=== PATIENT | male | born 1960 | race African-American/Black ===

== ENCOUNTER 2017-03-18 00:49 | Inpatient (IN) ==
[2017-03-18] MEDS ORDERED: HYDROmorphone 2 MG/1 ML VIAL IV STA (01:15)
[2017-03-18] MEDS ORDERED: METOCLOPRAMIDE 10 MG/2 ML VIAL IV STA (01:15)
[2017-03-18] MEDS ORDERED: NITROGLYCERIN 2% OINT 1 INCH/GM PACK TOP STA (01:15)
[2017-03-18] MEDS ORDERED: ONDANSETRON 4 MG/2 ML VIAL IV STA ×2 (01:15→02:55)
[2017-03-18] MEDS ORDERED: ASPIRIN 325 MG TABLET PO STA (01:15)
--- NOTE | 2017-03-18 01:22 | Emergency Department Note ---
Arrival - Arrival ED Nursing Triage Note: pt to room via ems. pt c/o cp since 1700 yesterday. pt states 2200 last night his icd fired. pt connedted to monitor ekg obtained. Mode of Arrival: Stretcher Limitations: No Limitations Source: Patient - History of Present Illness Onset (ago): hour(s) (Patient presents 3 hours post onset of symptom) <Matthew Islas - Last Filed: 03/18/17 01:18> <Ron Carias - Last Filed: 03/18/17 03:03> - Arrival Chief Complaint: Chest Pain Stated Complaint: chest pain Time Seen by Provider: 03/18/17 01:15 - History of Present Illness HPI Narrative: This 57-year-old black male with an extensive cardiac history including CA, multiple cardiac catheterizations, CABG, and implanted defibrillator presents after his defibrillator fired about 3 hours ago. Since that time he has had low -grade nausea without vomiting, a sense of breathlessness, and persistence of left sided chest pain. He states in the period preceding the firing of the defibrillator he was extremely nauseous and diaphoretic. He denies any other significant symptoms at this time and appears medically stable although uncomfortable. (Matthew Islas) Allergies/Adverse Reactions: Allergies Allergy/AdvReac Type Severity Reaction Status Date / Time No Known Allergies Allergy Verified 03/18/17 01:07 Home Medications: Home Medications Medication Instructions Recorded Confirmed Type Atorvastatin [Lipitor] 40 mg PO DAILY 03/18/17 03/18/17 History Carvedilol [Carvedilol] 3.125 mg PO DAILY 03/18/17 03/18/17 History Furosemide [Furosemide] 20 mg PO DAILY 03/18/17 03/18/17 History Lisinopril [Lisinopril] 2.5 mg PO DAILY 03/18/17 03/18/17 History Spironolactone 25 mg PO DAILY 03/18/17 03/18/17 History Tamsulosin [Flomax] 0.4 mg PO DAILY 03/18/17 03/18/17 History Review of System - Review of System Constitutional: Present: as per HPI Respiratory: Present: as per HPI Cardiovascular: Present: as per HPI Gastrointestinal: Present: as per HPI <Matthew Islas - Last Filed: 03/18/17 01:18> Medical,Surgical,& Family Hx - Medical History Cardio: History of: CHF, Hypertension, CA, Pacemaker Endocrine: History of: Dyslipidemia - Surgical History Cardiac Surgeries: Sugical HX of: Cardiac Catheterization Abdominal Surgeries: Surgical HX of: Cholecystectomy - Social History Smoking Status: Former smoker Frequency of Alcohol Use: Rarely Type of Drug Use: None <Matthew Islas - Last Filed: 03/18/17 01:18> Exam <Matthew Islas - Last Filed: 03/18/17 01:18> <Ron Carias - Last Filed: 03/18/17 03:03> Physical Examination: GENERAL: Well developed, well nourished black male in no acute distress. HEENT: Normocephalic. No trauma. Moist mucous membranes. EOMI. PERRLA. ENT NML NECK: Supple. No adenopathy. CARDIAC: Regular. No murmurs. Heart rate 82 O2 sat 97% CHEST: Clear to auscultation. No respiratory distress. Tender chest wall to palpation around the defibrillator ABDOMEN: Soft. Nontender. Active bowel sounds. EXTREMITIES: No trauma. Normal ROM. No pedal edema. SKIN: No diaphoresis. No rash. NEURO: Alert. Anxious and oriented 3 with motor, sensory, vibratory intact. No focal deficits. (Matthew Islas) Vital Signs: Vital Signs Temperature 96.2 F L 03/18/17 00:50 Pulse Rate 96 H 03/18/17 00:50 Respiratory Rate 17 03/18/17 01:14 Blood Pressure 115/77 03/18/17 00:50 O2 Sat by Pulse Oximetry 97 03/18/17 00:50 Course <Matthew Islas - Last Filed: 03/18/17 01:18> <Ron Carias - Last Filed: 03/18/17 03:03> Course Narrative: Patient with chest pain since yesterday that is worsened after having his ICD fire. He has a [employer] device. [employer] contacted for device interrogation and they plan to interrogate the device in the morning. Troponin negative. Discussed with Dr. Hanson and plan to admit to his service on telemetry for ICD interrogation in the morning and further management. (Ron Carias) Results <Matthew Islas - Last Filed: 03/18/17 01:18> - Labs CBC & BMP: 03/18/17 01:02 03/18/17 01:02 Lab Results: I have reviewed the patients labs <Ron Carias - Last Filed: 03/18/17 03:03> - Impressions EKG sinus rhythm at 82 with normal SD interval and intraventricular conduction delay. Left ventricular hypertrophy with nonspecific ST changes noted no acute injury pattern noted. (Matthew Islas) Disposition <Matthew Islas - Last Filed: 03/18/17 01:18> Case discussed with: patient <Ron Carias - Last Filed: 03/18/17 03:03> Clinical Impression: Chest pain, ICD (implantable cardioverter-defibrillator) discharge Disposition: Still a Patient Condition: Stable
[2017-03-18] MEDS ORDERED: METOCLOPRAMIDE 10 MG/2 ML VIAL ONE (01:24)
[2017-03-18] MEDS ORDERED: NITROGLYCERIN 2% OINT 1 INCH/GM PACK TOP ONE (01:24)
[2017-03-18] MEDS ORDERED: ONDANSETRON 4 MG/2 ML VIAL ONE ×2 (01:24→02:59)
[2017-03-18 01:25] LABS: Basophils # 0.1 10*3/uL (0.0-0.2); Eosinophils # 0.1 10*3/uL (0.0-0.87); Eosinophils % 1.3 % (0.00-10.9); Hematocrit 41.1 VOL% (42.0-52.0); Hemoglobin 13.9 GM/DL (14.0-18.0); Immature Granulocytes % 0.2 %; Immature Granulocytes Absolute 0.02 #; Lymphocytes # 1.8 10*3/uL (1.4-4.0); Lymphocytes % 21.6 % (21.2-54.2); Mean Corpuscular HGB Conc 33.8 GM/DL (32-36); Mean Corpuscular Hemoglobin 30 PG (27-34); Mean Corpuscular Volume 87.4 FL (87-102); Mean Platelet Volume 9.5 FL (9.6-12.0); Monocytes # 0.5 10*3/uL (0.11-0.8); Monocytes % 6.3 % (1.7-12.7); Neutrophils # 5.8 10*3/uL (1.4-7.4); Neutrophils % 69.6 % (38.7-73.9); Platelet Count 279 T/CUMM (130-400); White Blood Count 8.4 T/CUMM (4-12)
[2017-03-18] MEDS ORDERED: ASPIRIN 325 MG TABLET ONE (01:25)
[2017-03-18] MEDS ORDERED: HYDROmorphone 2 MG/1 ML VIAL ONE (01:25)
[2017-03-18 01:32] LABS: PT Patient Result 10.7 SECS; Partial Thromboplastin Time 28.8 SECS (0-40)
[2017-03-18 01:40] LABS: Albumin 3.2 G/DL (3.4-5.0); Bilirubin,Total 0.4 MG/DL (0.2-1.0); Calcium 8.7 MG/DL (8.5-10.1); Osmolality,Calculated 275.4 MOS/KG (273-304); Potassium 4.1 MMOL/L (3.5-5.1); Total Protein 6.9 G/DL (6.4-8.3)
[2017-03-18 01:41] LABS: Troponin I Only < 0.015 NG/ML (0.00-0.045)
[2017-03-18 02:34] LABS: Apearance,Urine CLEAR (Clear); Bilirubin,Urine Negative (Negative); Blood, Urine Moderate mg/dL (Negative); Glucose,Urine (UA) Negative (Negative); Ketones,Urine 5 mg/dL (Negative); Mucus,Urine Occasional /LPF (Occasional); Nitrite,Urine Negative (Negative); Protein,Urine Negative; RBC,Urine 5 /HPF (0-4); Urine Color Yellow (Yellow); Urine Specific Gravity 1.015 (1.001-1.035); WBC,Urine 1 /HPF (0-6)
[2017-03-18] MEDS ORDERED: MAGNESIUM SULF RIDER 2 GM in PREMIX 1 EACH IV PRN (02:56)
[2017-03-18] MEDS ORDERED: MORPHINE 2 MG/1 ML SYRINGE IV STA (02:56)
[2017-03-18] MEDS ORDERED: MAGNESIUM SULF RIDER 4 GM in PREMIX 1 EACH IV PRN (02:56)
[2017-03-18] MEDS ORDERED: ONDANSETRON 4 MG/2 ML VIAL IV PRN (02:56)
[2017-03-18] MEDS ORDERED: MORPHINE 2 MG/1 ML SYRINGE ONE (03:00)
[2017-03-18 03:10] LABS: Barbiturates Screen,Urine Negative (Negative); Benzodiazepines Screen,Urine Negative (Negative); Cannabinoid Screen,Urine Negative (Negative); Opiate Screen,Urine Positive (Negative); Phencyclidine Screen,Urine Negative (Negative)
[2017-03-18] MEDS: MORPHINE 2 MG/1 ML SYRINGE IV PRN (05:15)
[2017-03-18] MEDS: DEXTROSE 5% NACL 0.45% 1,000 ML IV SCH ×3 (05:17→21:20)
--- NOTE | 2017-03-18 06:14 | XRay Report ---
XR chest 2V Indication: Chest pain. Comparison: Chest x-ray 10/21/2016 Technique: PA and lateral chest x-ray was performed. Findings: The heart is mildly enlarged. Prior sternotomy is demonstrated. AICD is stable. Lungs demonstrate screening airspace opacities bilaterally within the cardiophrenic angle suggesting atelectatic change. Lungs otherwise clear for degree of inspiration. Chest is otherwise stable. Surgical absence of the gallbladder is demonstrated. Impression: 1. Minimal bibasilar atelectatic changes are suggested. Otherwise no adverse interval change in chest or evidence of acute pathology. 03/18/2017 6:10 AM PROCEDURE INTERPRETED AT [facility] DEPARTMENT OF RADIOLOGY Final Report Signed by: Dr. Johnnie Layne
--- NOTE | 2017-03-18 06:24 | EKG Report ---
Stationary ECG Study [facility] ER Test Date: 03/18/2017 12:54:21 AM Pat Name: DONITA SCHMITT Department: Room: 289 Gender: M Sap Grc Security: : 1960 Requested by: Matthew Navarro Order Number: [id number] Reading MD: KAYLEEN LARSEN Intervals [place] Rate: 82 P: 40 AR: 155 QRS: 26 QRSD: 132 T: 251 QT: 379 QTc: 418 Interpretive Statements SINUS RHYTHM INTRAVENTRICULAR CONDUCTION DELAY LEFT VENTRICULAR HYPERTROPHY AND ST-T CHANGE Electronically Signed On 03-18-17 08:55:21 CDT by KAYLEEN LARSEN [email or web address]
--- NOTE | 2017-03-18 07:07 | EKG Report ---
Stationary ECG Study [facility] Test Date: 03/18/2017 7:06:54 AM Pat Name: DONITA SCHMITT Department: Room: 289 Gender: M Court Reporter: FADIA : 1960 Requested by: Matthew Navarro Order Number: [id number] Reading MD: KAYLEEN LARSEN Intervals [place] Rate: 84 P: 43 RI: 125 QRS: 60 QRSD: 125 T: -85 QT: 363 QTc: 404 Interpretive Statements SINUS RHYTHM WITH OCCASIONAL VENTRICULAR PREMATURE COMPLEXES LEFT VENTRICULAR HYPERTROPHY AND ST-T CHANGE Electronically Signed On 03-18-17 08:56:57 CDT by KAYLEEN LARSEN [email or web address]
[2017-03-18] MEDS ORDERED: SERTRALINE 25 MG TABLET PO ONE (09:51)
[2017-03-18] MEDS: PANTOPRAZOLE 40 MG TABLET PO SCH (10:57)
[2017-03-18] MEDS: ACETAMINOPHEN 325 MG TABLET PO SCH ×2 (10:57→21:23)
[2017-03-18] MEDS: traMADol 50 MG TABLET PO SCH ×2 (10:58→21:57)
[2017-03-18] MEDS: GABAPENTIN 100 MG CAPSULE PO SCH ×3 (10:58→21:23)
--- NOTE | 2017-03-18 19:57 | Cardiology History & Physical ---
Beba, Shelli Amezquita RN, am scribing for, and in the presence of, Mik Kumar MD 19:55. Assessment and Plan - Time spent with patient Time spent with patient: Greater than 30 minutes (due to assessment, planning, documentation, medication review) (1) Chest pain Status: Chronic Assessment and plan: 57 year old black male with PMHx of CAD and CABG, has AICD implant with reported decreased LV function, EF 15% who now presents with atypical chest and left arm pain, possible AICD shock. 1. CHEST PAIN - atypical, reproducible chest wall tenderness during exam. Cardiac biomarkers and EKG negative for ischemic change. Possibly musculoskeletal etiology. Denies recent or current exertional anginal complaint. Will treat for possible musculoskeltetal sources of discomfort with Ultram, Tylenol, Naproxen, Neurontin. Start PPI as atypical discomfort could be GI related. Initiate sertraline for anxiety as possible source of chest pain. 2. AICD DISCHARGE - [employer] device interrogated per [employer] sales representative wire rope this morning. Interrogation revealed episode of self sustained ventricular tachycardia, but there have been no shocks delivered. 3. HYPERTENSION - BP has been overall well controlled. Continue current medication regimen of with 4. HISTORY OF CHF - will hold off obtaining echocardiogram at this point. Mild BNP elevation, but no overt s/s heart failure at this time. Most likely previously history of congestive heart failure related to LV systolic dysfunction. He is not having orthopnea, PND, swelling of bilateral lower extremities. Continue diuresis with spironolactone and furosemide. Continue YUSRA inhibitor and beta alpesh. 5. HISTORY OF CAD - Previous coronary artery bypass grafting in 1997 per patient report with recent percutaneous coronary intervention in January 2016. No antiplatelet listed on current home medications. Denies knowledge of any contraindication to anticoagulation. 6. HYPERLIPIDEMIA - Continue atorvastatin. FLP in January 2017 unremarkable. Addendum : The patient has chest wall pain which exactly reproduces his pain. His blood cardiac iso-enzymes are negative. This would suggest may be chest wall pain Plan: Treat for chest wall pain. I discussed with the patient about doing a heart cath. He declines. I agree. We could do an outpatient stress test later Treat GI cause, treat muscle skeletal pain The patient thinks he had an AICD shock. He then interrogated. He has had no shock. There could be a component of anxiety We will treat with SSRI. Start sertraline 25 mg now and then nightly We will not repeat an echo. He had it four months ago at the time of the ICD. We will hold off on Naprosyn because it might adversely affect his heart failure renal function Regarding his CAD/coronary stent, he is apparently not on any antiplatelet medicines, aspirin is not even listed. Plan: Start aspirin 325 mg chewed now than 1 daily. He is over a year out from his last stent so may be is off the Plavix. We will follow closely. Current Visit: Yes (2) History of coronary artery disease Status: Acute Assessment and plan: SEE PLAN OF CARE LISTED ABOVE. Current Visit: Yes (3) History of coronary artery bypass graft Status: Chronic Assessment and plan: SEE PLAN OF CARE LISTED ABOVE. Current Visit: Yes (4) Hypertension Status: Chronic Assessment and plan: SEE PLAN OF CARE LISTED ABOVE. Current Visit: Yes (5) Hyperlipidemia Status: Chronic Assessment and plan: SEE PLAN OF CARE LISTED ABOVE. Current Visit: Yes (6) Presence of automatic cardioverter/defibrillator (AICD) Status: Chronic Assessment and plan: SEE PLAN OF CARE LISTED ABOVE. Current Visit: Yes (7) History of CHF (congestive heart failure) Status: Chronic Assessment and plan: SEE PLAN OF CARE LISTED ABOVE. 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 MAGNUS ESPARZA ([place], [place]) PCP: DR. ROCHA Mr. Haile is a 57 year old black male with risk factors significant for: Hypertension, dyslipidemia, tobacco abuse, sedentary lifestyle, personal and family history of premature CAD. Patient was previously followed by Dr. Esparza in [place], but he reports he wishes to establish cardiac care with [facility] as he has recently relocated to [place]. Patient reports past medical history including coronary artery bypass grafting in 1997, percutaneous coronary intervention with coronary stent placement in January 2016, and he has had previous AICD implant. Patient reports he has "15% functioning capacity of the heart". He has previously been evaluated in [place]'s ED in October 2016 when he presented for further evaluation of left-sided chest pain which radiated to the left arm and back with associated shortness of breath, diaphoresis, dizziness, nausea and vomiting, and heartburn. He also reported he had experienced AICD discharged 2. At time of evaluation, patient had no acute ischemic findings, did test positive for significant blood alcohol level and use of cocaine. He was evaluated by Dr. Hanson, and was discharged with recommendation to follow-up with primary campus interviews intern. Patient now presents to [facility] ED overnight per EMS with complaints of sudden onset of chest pain while at rest yesterday evening about 5 PM. Chest pain described as a "pressure" and "stab" with radiation to the left arm, some associated shortness of breath, nausea and vomiting. Reports he was lying down when this discomfort started, and when he sat up, some of his discomfort was alleviated. Denies experiencing indigestion, belching, burping. Chest discomfort waxed and waned throughout the evening, and patient became concerned around 10 PM yesterday evening that he had experienced a shock from his defibrillator prompting presentation. Reports he has felt generally fatigued for approximately 1-1/2 weeks. Denies exertional anginal complaint. No orthopnea, PND, palpitation, significant LE edema. Cardiac enzymes have been normal. EKG benign. AICD interrogated prior [employer] sales representative wire rope earlier this morning. There have been no shocks delivered from device. However, patient did experience self sustained run of ventricular tachycardia on March 16. NSVT did not require defibrillation. BP this morning 110/68, pulse rate in the 80s and regular. Labs reviewed. As above. H&H 13.9 and 41.1. Potassium 4.1. Creatinine 0.9. Glucose 63. BNP 451. UDS positive for opiates. During exam, patient is having some reproducible chest wall soreness and left neck and cervical discomfort. Appetite is good this morning, and he is eating 100% of breakfast served with no nausea or vomiting. Does have some mild abdominal tenderness with palpation during exam. Admits to recent chills, productive cough with brownish sputum. Denies fever. No hemoptysis, hematuria , hematochezia, dark or tarry stools. No dysphagia, dyspepsia. Home Medications Medication Instructions Recorded Confirmed Type Atorvastatin [Lipitor] 40 mg PO DAILY 03/18/17 03/18/17 History Carvedilol [Carvedilol] 3.125 mg PO DAILY 03/18/17 03/18/17 History Furosemide [Furosemide] 20 mg PO DAILY 03/18/17 03/18/17 History Lisinopril [Lisinopril] 2.5 mg PO DAILY 03/18/17 03/18/17 History Spironolactone 25 mg PO DAILY 03/18/17 03/18/17 History Tamsulosin [Flomax] 0.4 mg PO DAILY 03/18/17 03/18/17 History Allergies Allergy/AdvReac Type Severity Reaction Status Date / Time No Known Allergies Allergy Verified 03/18/17 01:07 - Constitutional Constitutional: Present: fatigue. Absent: chills, fever(s), frequent falls, night sweats, stops breathing during sleep, weakness, weight gain, weight loss - EENT Eyes: Absent: blurry vision, loss of vision Nose, mouth and throat: Present: neck pain. Absent: dysphagia, throat swelling , tongue swelling - Cardiovascular Cardiovascular: Present: chest pain at rest, dyspnea, radiating jaw, neck or arm pain. Absent: chest pain with activity, claudication, diaphoresis, dyspnea on exertion, edema, lightheadedness, orthopnea, palpitations, PND - Respiratory Respiratory: Present: cough, dyspnea. Absent: hemoptysis, dyspnea on exertion, wheezing, snoring, pain on inspiration, change in phlegm color - Gastrointestinal Gastrointestinal: Present: abdominal pain. Absent: bloating, change in bowel habits, coffee ground emesis, constipation, diarrhea, dyspepsia, dysphagia, heartburn, hematochezia, melena, nausea, vomiting, jaundice - Genitourinary Genitourinary: Absent: difficulty urinating, dysuria, flank pain, hematuria, nocturia, testicular pain - Musculoskeletal Musculoskeletal: Present: arthralgias, myalgias. Absent: back pain, limited range of motion - Neurological Neurological: Absent: abnormal gait, abnormal speech, confusion, dizziness, frequent falls, syncope, tremor(s) - Psychiatric Psychiatric: Present: anxiety. Absent: confusion, depression, panic attacks - Endocrine Endocrine: Absent: cold intolerance, heat intolerance - Hematologic/Lymphatic Hematologic/Lymphatic: Absent: easy bleeding, easy bruising Medical,Surgical,& Family Hx - Medical History Cardio: History of: CHF, CAD, Hypertension, [place], Pacemaker No history of: PVD Psychological: No history of: Anxiety Disorders, Depression Neurology: No history of: Cerebrovascular Accident, Dementia, Seizures, TIA Endocrine: History of: Dyslipidemia No history of: Diabetes Mellitus (IDDM), Diabetes Mellitus (NIDDM), Thyroid Disorder Respiratory: No history of: Bronchitis, Obstructive Sleep Apnea, Pulmonary Hypertension Renal: No history of: Renal Failure, Renal Problems Genitourinary: History of: Prostate Problems Gastrointestinal: No history of: Clostridium Difficile, Esophageal Varices, GERD, Gastrointestinal Bleed, Hematochezia Musculoskeletal: History of: Back/Neck Problems Hematology: No history of: Blood Transfusion Reaction, Bleeding Problems, Sickle Cell Disease, Hematologic Cancer Other: No history of: Cancer, HIV - Surgical History Cardiac Surgeries: Sugical HX of: Cardiac Catheterization, Cardiac Surgery, Internal Defibrillator Patient Denies: Carotid Endarterectomy HEENT Surgeries: Patient denies: Carotid Endarterectomy Abdominal Surgeries: Surgical HX of: Cholecystectomy Patient denies: Abdominal Surgery Orthopedic Surgeries: Patient denies;: Implanted Devices - Social History Smoking Status: Current every day smoker Have you smoked in the last 12 months: Yes Time spent discussing smoking cessation with patient: more than 10 minutes Frequency of Alcohol Use: Rarely Type of Drug Use: None Functional capacity: uses cane/walker Cardiology Physical Exam - Constitutional Vitals: Vital Signs Temp Pulse Resp BP Pulse Ox 97.2 F L 99 H 20 109/68 92 L 03/18/17 07:56 03/18/17 07:56 03/18/17 07:56 03/18/17 07:56 03/18/17 07:56 Intake and Output 03/17/17 03/18/17 03/18/17 22:59 06:59 14:59 Intake Total 240 / 240 Balance 240 / 240 Intake: Oral 240 / 240 Other: # Voids 0 # Bowel Movements 0 Weight 172 lb 11.2 oz General appearance: normal weight, no acute distress - Head Head exam: Present: normal inspection, atraumatic. Absent: abrasion, contusion , hematoma, laceration - Eye Eye exam: Present: EOMI. Absent: periorbital swelling Pupils: Present: [place]. Absent: dilated, fixed - ENT ENT exam: Present: normal exam - Neck Neck exam: Present: normal inspection - Respiratory Respiratory exam: Present: chest wall tenderness, rales (right mid and lower king). Absent: accessory muscle use, prolonged expiratory phase, wheezes - Cardiovascular Cardiovascular exam: Present: regular rate and rhythm. Absent: bradycardia, JVD - GI/Abdominal GI/Abdominal exam: Present: normal bowel sounds, tenderness, soft. Absent: ascites, distended, firm, guarding, mass - Extremities Exam Extremities exam: Present: normal capillary refill, full ROM. Absent: calf tenderness - Back Exam Back exam: Present: normal inspection. Absent: CVA tenderness (L), CVA tenderness (R), muscle spasm - Neurological Exam Neurological exam: Present: alert, oriented X3. Absent: abnormal gait - Psychiatric Psychiatric exam: Present: normal affect. Absent: depressed, flat affect - Skin Skin exam: Present: normal color, warm, dry, intact. Absent: abrasion, cyanosis , erythema, pallor, petechiae, rash Result/EKG - Labs CBC & BMP: 03/18/17 01:02 03/18/17 01:02 Lab Results: I have reviewed the past 24 hour labs Labs: Laboratory Results - last 24 hr 03/18/17 03/18/17 03/18/17 01:02 01:02 01:02 WBC 8.4 RBC 4.70 Hgb 13.9 L Hct 41.1 L MCV 87.4 MCH 30 MCHC 33.8 RDW 14.0 Plt Count 279 MPV 9.5 L Neut % (Auto) 69.6 Lymph % (Auto) 21.6 [place] % (Auto) 6.3 Eos % (Auto) 1.3 Baso % (Auto) 1.0 H Neut # (Auto) 5.8 Lymph # (Auto) 1.8 [place] # (Auto) 0.5 Eos # (Auto) 0.1 Baso # (Auto) 0.1 Immature Gran % 0.2 Nucleated RBC % 0.0 Immature Gran # 0.02 Nucleated RBCs # 0.00 INR 1.0 PT Patient/Control Mix 10.7 Circ Anticoag PTT 28.8 Sodium Potassium Chloride Carbon Dioxide Anion Gap BUN Creatinine GFR Calculation BUN/Creatinine Ratio Glucose Calculated Osmolality Calcium Total Bilirubin AST ALT Alkaline Phosphatase Total Creatine Kinase 104 CK-MB (CK-2) 1.4 Troponin I < 0.015 B-Natriuretic Peptide Total Protein Albumin Globulin Albumin/Globulin Ratio Urine Color Urine Appearance Urine pH Ur Specific [place] Urine Protein Urine Glucose (UA) Urine Ketones Urine Blood Urine Nitrate Urine Bilirubin Urine Urobilinogen Urine Leukocytes Urine RBC Urine WBC Urine Mucus Ur Culture Indicated? Urine Opiates Screen Ur Barbiturates Screen Ur Phencyclidine Scrn U Amphetamine/Methamph U Benzodiazepines Scrn U Cocaine Metab Screen U Cannabinoids Screen 03/18/17 03/18/17 03/18/17 01:02 01:02 02:15 WBC RBC Hgb Hct MCV MCH MCHC RDW Plt Count MPV Neut % (Auto) Lymph % (Auto) [place] % (Auto) Eos % (Auto) Baso % (Auto) Neut # (Auto) Lymph # (Auto) [place] # (Auto) Eos # (Auto) Baso # (Auto) Immature Gran % Nucleated RBC % Immature Gran # Nucleated RBCs # INR PT Patient/Control Mix Circ Anticoag PTT Sodium 140 Potassium 4.1 Chloride 106 Carbon Dioxide 22 Anion Gap 16.1 H BUN 11 Creatinine 0.90 GFR Calculation 119 BUN/Creatinine Ratio 12.00 Glucose 63 L Calculated Osmolality 275.4 Calcium 8.7 Total Bilirubin 0.40 AST 23 ALT 17 Alkaline Phosphatase 109 Total Creatine Kinase CK-MB (CK-2) Troponin I B-Natriuretic Peptide 451 H Total Protein 6.9 Albumin 3.2 L Globulin 3.7 H Albumin/Globulin Ratio 0.8 L Urine Color Yellow Urine Appearance Clear Urine pH 5.0 Ur Specific [place] 1.015 Urine Protein Negative Urine Glucose (UA) Negative Urine Ketones 5 Urine Blood Moderate Urine Nitrate Negative Urine Bilirubin Negative Urine Urobilinogen 2.0 H Urine Leukocytes Negative Urine RBC 5 Urine WBC 1 Urine Mucus Occasional Ur Culture Indicated? Not indicated Urine Opiates Screen Ur Barbiturates Screen Ur Phencyclidine Scrn U Amphetamine/Methamph U Benzodiazepines Scrn U Cocaine Metab Screen U Cannabinoids Screen 03/18/17 03/18/17 04:57 Unknown WBC RBC Hgb Hct MCV MCH MCHC RDW Plt Count MPV Neut % (Auto) Lymph % (Auto) [place] % (Auto) Eos % (Auto) Baso % (Auto) Neut # (Auto) Lymph # (Auto) [place] # (Auto) Eos # (Auto) Baso # (Auto) Immature Gran % Nucleated RBC % Immature Gran # Nucleated RBCs # INR PT Patient/Control Mix Circ Anticoag PTT Sodium Potassium Chloride Carbon Dioxide Anion Gap BUN Creatinine GFR Calculation BUN/Creatinine Ratio Glucose Calculated Osmolality Calcium Total Bilirubin AST ALT Alkaline Phosphatase Total Creatine Kinase CK-MB (CK-2) Troponin I < 0.015 B-Natriuretic Peptide Total Protein Albumin Globulin Albumin/Globulin Ratio Urine Color Urine Appearance Urine pH Ur Specific [place] Urine Protein Urine Glucose (UA) Urine Ketones Urine Blood Urine Nitrate Urine Bilirubin Urine Urobilinogen Urine Leukocytes Urine RBC Urine WBC Urine Mucus Ur Culture Indicated? Urine Opiates Screen Positive H Ur Barbiturates Screen Negative Ur Phencyclidine Scrn Negative U Amphetamine/Methamph Negative U Benzodiazepines Scrn Negative U Cocaine Metab Screen Negative U Cannabinoids Screen Negative - Diagnostic Findings Procedure: Chest x-ray: image reviewed by me, report reviewed by me - EKG EKG results: interpreted by me, no acute changes EKG shows: sinus rhythm (non specific ST-T changes inferiorly; occasional PVC) I, Mik Kumar MD, personally performed the services described in this documentation, ascribed by Shelli Amezquita RN in my presence, and it is both accurate and complete [id number] .
[2017-03-18] MEDS: SERTRALINE 25 MG TABLET PO SCH (20:26)
[2017-03-19] MEDS: MORPHINE 2 MG/1 ML SYRINGE IV PRN ×3 (00:19→21:23)
[2017-03-19] MEDS: DEXTROSE 5% NACL 0.45% 1,000 ML IV SCH ×2 (03:54→06:31)
[2017-03-19 05:02] LABS: Basophils # 0.1 10*3/uL (0.0-0.2); Basophils % 0.5 % (0.0-0.8); Eosinophils # 0.2 10*3/uL (0.0-0.87); Eosinophils % 2.3 % (0.00-10.9); Hematocrit 36.1 VOL% (42.0-52.0); Hemoglobin 11.8 GM/DL (14.0-18.0); Immature Granulocytes % 0.1 %; Immature Granulocytes Absolute 0.01 #; Lymphocytes % 20.5 % (21.2-54.2); Mean Corpuscular HGB Conc 32.7 GM/DL (32-36); Mean Corpuscular Hemoglobin 29 PG (27-34); Mean Corpuscular Volume 88.7 FL (87-102); Mean Platelet Volume 9.9 FL (9.6-12.0); Monocytes # 0.6 10*3/uL (0.11-0.8); Monocytes % 6.3 % (1.7-12.7); Neutrophils # 6.9 10*3/uL (1.4-7.4); Neutrophils % 70.3 % (38.7-73.9); Platelet Count 240 T/CUMM (130-400); Red Blood Count 4.07 MC/CUMM (3.8-5.5); Red Cell Distribution Width 14.4 % (9.3-17.3); White Blood Count 9.9 T/CUMM (4-12)
[2017-03-19 05:33] LABS: Magnesium 1.9 MG/DL (1.8-2.4); Osmolality,Calculated 279.3 MOS/KG (273-304); Potassium 3.9 MMOL/L (3.5-5.1)
[2017-03-19] MEDS: ASPIRIN CHEW 81 MG TABLET PO SCH (08:00)
[2017-03-19] MEDS: PANTOPRAZOLE 40 MG TABLET PO SCH (08:01)
[2017-03-19] MEDS: TAMSULOSIN 0.4 MG CAPSULE PO SCH (08:01)
[2017-03-19] MEDS: LISINOPRIL 2.5 MG TABLET PO SCH (08:01)
[2017-03-19] MEDS: ATORVASTATIN 40 MG TABLET PO SCH (08:01)
[2017-03-19] MEDS: GABAPENTIN 100 MG CAPSULE PO SCH (08:01)
[2017-03-19] MEDS: traMADol 50 MG TABLET PO SCH ×3 (08:02→21:21)
[2017-03-19] MEDS: ACETAMINOPHEN 325 MG TABLET PO SCH ×2 (08:02→21:21)
[2017-03-19] MEDS ORDERED: SPIRONOLACTONE 25 MG TABLET PO SCH (09:00)
[2017-03-19] MEDS ORDERED: CARVEDILOL 3.125 MG TABLET PO SCH (09:00)
[2017-03-19] MEDS ORDERED: FUROSEMIDE 20 MG TABLET PO SCH (09:00)
[2017-03-19] MEDS: GABAPENTIN 300 MG CAPSULE PO SCH ×3 (11:25→21:21)
[2017-03-19] MEDS: FUROSEMIDE 20 MG/2 ML VIAL IV SCH ×2 (11:25→17:32)
[2017-03-19] MEDS: NAPROXEN 250 MG TABLET PO SCH ×2 (11:25→21:21)
--- NOTE | 2017-03-19 12:10 | Cardiology Progress Note ---
Beba, Shelli Amezquita RN, am scribing for, and in the presence of, Mik Kumar MD 12:09. Assessment and Plan - Time spent with patient Time spent with patient: Greater than 30 minutes (1) Chest pain Status: Chronic Assessment and plan: 57 year old black male with PMHx of CAD and CABG, has AICD implant with reported decreased LV function, EF 15% who now presents with atypical chest and left arm pain, possible AICD shock. 03/18/17: ASSESSMENT/PLAN: 1. CHEST PAIN - atypical, reproducible chest wall tenderness during exam. Cardiac biomarkers and EKG negative for ischemic change. Possibly musculoskeletal etiology. Denies recent or current exertional anginal complaint. Will treat for possible musculoskeltetal sources of discomfort with Ultram, Tylenol, Naproxen, Neurontin. Start PPI as atypical discomfort could be GI related. Initiate sertraline for anxiety as possible source of chest pain. 2. AICD DISCHARGE - [employer] device interrogated per [employer] signs sales representative this morning. Interrogation revealed episode of self sustained ventricular tachycardia, but there have been no shocks delivered. 3. HYPERTENSION - BP has been overall well controlled. Continue current medication regimen of with 4. HISTORY OF CHF - will hold off obtaining echocardiogram at this point. Mild BNP elevation, but no overt s/s heart failure at this time. Most likely previously history of congestive heart failure related to LV systolic dysfunction. He is not having orthopnea, PND, swelling of bilateral lower extremities. Continue diuresis with spironolactone and furosemide. Continue YUSRA inhibitor and beta alpesh. 5. HISTORY OF CAD - Previous coronary artery bypass grafting in 1997 per patient report with recent percutaneous coronary intervention in January 2016. No antiplatelet listed on current home medications. Denies knowledge of any contraindication to anticoagulation. 6. HYPERLIPIDEMIA - Continue atorvastatin. FLP in January 2017 unremarkable. Addendum : The patient has chest wall pain which exactly reproduces his pain. His blood cardiac iso-enzymes are negative. This would suggest may be chest wall pain Plan: Treat for chest wall pain. I discussed with the patient about doing a heart cath. He declines. I agree. We could do an outpatient stress test later Treat GI cause, treat muscle skeletal pain The patient thinks he had an AICD shock. He then interrogated. He has had no shock. There could be a component of anxiety We will treat with SSRI. Start sertraline 25 mg now and then nightly We will not repeat an echo. He had it four months ago at the time of the ICD. We will hold off on Naprosyn because it might adversely affect his heart failure renal function Regarding his CAD/coronary stent, he is apparently not on any antiplatelet medicines, aspirin is not even listed. Plan: Start aspirin 325 mg chewed now than 1 daily. He is over a year out from his last stent so may be is off the Plavix. We will follow closely. 03/19/17: ASSESSMENT/PLAN: 1. CHEST PAIN -chest wall pain which is reproducible. He has had some relief since yesterday. Current chest discomfort may be related to some mild volume overload. 2. PRESENCE OF AICD IMPLANT -device has been interrogated prior [employer] signs sales representative since admission. Interrogation revealed a single episode of self sustained VT, but there have been no shocks delivered. Device is functioning appropriately. 3. HYPERTENSION -chronic, and well controlled at this time. Continue as present. 4. HISTORY OF CHF -mild BNP elevation at admission but no overt heart failure symptoms. Lung sounds are wet this morning, and we will treat with additional dose of IV Lasix this morning. Monitor electrolytes and renal function. Monitor I/O, daily weight. 5. HISTORY OF CAD -history of CABG in 1997 per patient report with previous PCI a little over one year ago. ASA 325 mg by mouth has been started. He is not on Plavix 6. HYPERLIPIDEMIA -FLP in January. Continue current dose of atorvastatin. We stopped his IV fluids Change his oral Lasix to furosemide 20 mg IV twice daily Check BMP in the a.m. Increase meds for pain-cautiously add some Naprosyn Consult pain management tomorrow-see if they can do a trigger point injection I have other suggestions He relates a history of using his arms to pick himself up for physical therapy. Maybe he strained his left chest and arm causing this pain We will also increase his gabapentin for the pain We will add some trazodone to help him sleep better at night. He has not slept well We will increase carvedilol because his heart rate is rapid We will decrease his spironolactone to allow slightly higher blood pressure Part of his low blood pressure probably relates to needing the generic Flomax We will follow-up labs in a.m. Current Visit: Yes (2) History of coronary artery disease Status: Acute Assessment and plan: SEE PLAN OF CARE LISTED ABOVE. Current Visit: Yes (3) History of coronary artery bypass graft Status: Chronic Assessment and plan: SEE PLAN OF CARE LISTED ABOVE. Current Visit: Yes (4) Hypertension Status: Chronic Assessment and plan: SEE PLAN OF CARE LISTED ABOVE. Current Visit: Yes (5) Hyperlipidemia Status: Chronic Assessment and plan: SEE PLAN OF CARE LISTED ABOVE. Current Visit: Yes (6) Presence of automatic cardioverter/defibrillator (AICD) Status: Chronic Assessment and plan: SEE PLAN OF CARE LISTED ABOVE. Current Visit: Yes (7) History of CHF (congestive heart failure) Status: Chronic Assessment and plan: SEE PLAN OF CARE LISTED ABOVE. Current Visit: Yes Cardiology - PN: Subj Interval history: PRIMARY BUILDING CONSTRUCTION IRONWORKER: DR. KUMAR ([facility]) (PREVIOUSLY FOLLOWED BY DR. ESPARZA - [place]) PCP: DR. ROCHA SUMMARY: Mr. Haile is a 57-year-old black male with risk factor significant for: Hypertension, dyslipidemia, tobacco abuse, sedentary lifestyle, personal and family history of premature coronary artery disease. Patient has previously been followed by cardiology Dr. Esparza in [place], but he now wishes to establish care with [facility]ology with Dr. Kumar due to recently relocating to [place]. Reported past medical history includes coronary artery bypass grafting in 1997, percutaneous coronary intervention with stent placement in January 2016, and AICD implant. Patient reported "15% functioning capacity of the heart". He has had previous evaluations at [facility] , and most recently in October 2016 he presented for evaluation of left-sided chest pain with radiation to left arm and back, associated dyspnea, diaphoresis , dizziness, nausea and vomiting, heartburn. He has had no acute ischemic findings. He has had toxicology screens positive for alcohol and cocaine. Patient is currently admitted to [facility] telemetry after presenting to emergency room by EMS with complaints of sudden onset of chest pain while at rest. He was also concerned he had experienced a shock from his AICD. He has not been ruled out for NH. CRTD has been interrogated, and found to be functioning appropriately and has not delivered any shocks. Patient has experienced some self sustained ventricular tachycardia as recently as March 16. BNP mildly elevated 451 on admit. March: Mr. Haile is resting quietly this morning. He arouses easily, and he reports that he is not feeling very well at all. Reports continued chest discomfort, and chest soreness continues to be reproducible with exam as previously. He also continues to have some cervical discomfort. Says his shortness of breath is "okay", and upon exam, he does sound as if he has some pulmonary congestion. Wet, nonproductive cough also. IV fluids were stopped earlier this morning. He is using supplemental oxygen, and he is not in any acute respiratory distress at this time. Oxygen saturation levels upper 90s. Systolic BP 110- 125 mmHg. Sinus rhythm and sinus tachycardia with pulse rate no greater than 115 bpm. No overt ectopy or dysrhythmia seen. Labs reviewed. H&H stable. WBC 9100. Potassium 3.9, magnesium 1.9. Renal function remained stable with creatinine 0.9 and GFR 117. Exam (Progress Note) - Constitutional Vitals: Period Temp Pulse Resp BP Sys/[place] Pulse Ox Last 24 Hr 97.0 F-98.3 F 86-112 18-20 108-126/69-85 90-99 Exam: General appearance: normal weight, no acute distress - Head Head exam: Present: normal inspection, atraumatic. Absent: abrasion, contusion , hematoma, laceration - Eye Eye exam: Present: EOMI. Absent: periorbital swelling Pupils: Present: PARIS. Absent: dilated, fixed - ENT ENT exam: Present: normal exam - Neck Neck exam: Present: normal inspection. Cervical discomfort. - Respiratory Respiratory exam: Present: chest wall tenderness. Rales throughout, worse today. Absent: accessory muscle use, prolonged expiratory phase, wheezes - Cardiovascular Cardiovascular exam: Present: regular rate and rhythm. Absent: bradycardia, JVD - GI/Abdominal GI/Abdominal exam: Present: normal bowel sounds, tenderness, soft. Absent: ascites, distended, firm, guarding, mass - Extremities Exam Extremities exam: Present: normal capillary refill, full ROM. Absent: calf tenderness - Back Exam Back exam: Present: normal inspection. Absent: CVA tenderness (L), CVA tenderness (R), muscle spasm - Neurological Exam Neurological exam: Present: alert, oriented X3. Absent: abnormal gait - Psychiatric Psychiatric exam: Present: normal affect. Absent: depressed, flat affect - Skin Skin exam: Present: normal color, warm, dry, intact. Absent: abrasion, cyanosis , erythema, pallor, petechiae, rash Result/EKG - Labs CBC & BMP: 03/19/17 04:02 03/19/17 04:02 Lab Results: I have reviewed the past 24 hour labs Labs: Laboratory Results - last 24 hr 03/19/17 03/19/17 04:02 04:02 WBC 9.9 RBC 4.07 Hgb 11.8 L D Hct 36.1 L MCV 88.7 MCH 29 MCHC 32.7 RDW 14.4 Plt Count 240 MPV 9.9 Neut % (Auto) 70.3 Lymph % (Auto) 20.5 L Norman % (Auto) 6.3 Eos % (Auto) 2.3 Baso % (Auto) 0.5 Neut # (Auto) 6.9 Lymph # (Auto) 2.0 Norman # (Auto) 0.6 Eos # (Auto) 0.2 Baso # (Auto) 0.1 Immature Gran % 0.1 Nucleated RBC % 0.0 Immature Gran # 0.01 Nucleated RBCs # 0.00 Sodium 141 Potassium 3.9 Chloride 107 Carbon Dioxide 26 Anion Gap 11.9 BUN 11 Creatinine 0.90 GFR Calculation 117 BUN/Creatinine Ratio 12.00 Glucose 101 Calculated Osmolality 279.3 Calcium 8.0 L Magnesium 1.9 - EKG EKG results: interpreted by me, no acute changes EKG shows: sinus rhythm IStacy Dale, MD, personally performed the services described in this documentation, ascribed by Shelli Amezquita RN in my presence, and it is both accurate and complete .
[2017-03-19] MEDS: CARVEDILOL 3.125 MG TABLET PO SCH ×2 (14:08→17:32)
[2017-03-19] MEDS ORDERED: ASPIRIN CHEW 81 MG TABLET PO ONE (19:44)
[2017-03-19] MEDS: SERTRALINE 25 MG TABLET PO SCH (21:21)
[2017-03-19] MEDS: traZODone 50 MG TABLET PO SCH (21:23)
[2017-03-20] MEDS: CARVEDILOL 3.125 MG TABLET PO SCH ×5 (00:48→23:58)
[2017-03-20 05:59] LABS: Basophils # 0.1 10*3/uL (0.0-0.2); Basophils % 0.8 % (0.0-0.8); Eosinophils # 0.2 10*3/uL (0.0-0.87); Eosinophils % 3.3 % (0.00-10.9); Hemoglobin 12.7 GM/DL (14.0-18.0); Immature Granulocytes % 0.3 %; Immature Granulocytes Absolute 0.02 #; Lymphocytes # 2.3 10*3/uL (1.4-4.0); Lymphocytes % 34.8 % (21.2-54.2); Mean Corpuscular HGB Conc 32.6 GM/DL (32-36); Mean Corpuscular Hemoglobin 29 PG (27-34); Mean Platelet Volume 10.1 FL (9.6-12.0); Monocytes # 0.5 10*3/uL (0.11-0.8); Monocytes % 8.1 % (1.7-12.7); Neutrophils # 3.5 10*3/uL (1.4-7.4); Neutrophils % 52.7 % (38.7-73.9); Platelet Count 260 T/CUMM (130-400); Red Blood Count 4.38 MC/CUMM (3.8-5.5); Red Cell Distribution Width 14.6 % (9.3-17.3); White Blood Count 6.6 T/CUMM (4-12)
[2017-03-20 06:25] LABS: Calcium 8.9 MG/DL (8.5-10.1); Magnesium 2.2 MG/DL (1.8-2.4); Osmolality,Calculated 280.3 MOS/KG (273-304); Potassium 4.2 MMOL/L (3.5-5.1)
[2017-03-20] MEDS: ACETAMINOPHEN 325 MG TABLET PO SCH ×2 (09:17→21:24)
[2017-03-20] MEDS: SPIRONOLACTONE 25 MG TABLET PO SCH ×2 (09:17→21:23)
[2017-03-20] MEDS: GABAPENTIN 300 MG CAPSULE PO SCH ×3 (09:17→21:23)
[2017-03-20] MEDS: PANTOPRAZOLE 40 MG TABLET PO SCH (09:17)
[2017-03-20] MEDS: traMADol 50 MG TABLET PO SCH ×2 (09:18→21:24)
[2017-03-20] MEDS: LISINOPRIL 2.5 MG TABLET PO SCH (09:18)
[2017-03-20] MEDS: FUROSEMIDE 20 MG/2 ML VIAL IV SCH ×2 (09:18→15:35)
[2017-03-20] MEDS: ATORVASTATIN 40 MG TABLET PO SCH (09:18)
[2017-03-20] MEDS: ASPIRIN CHEW 81 MG TABLET PO SCH (09:18)
[2017-03-20] MEDS: TAMSULOSIN 0.4 MG CAPSULE PO SCH (09:18)
--- NOTE | 2017-03-20 09:54 | Physician Query Form ---
CLICK EDIT DOCUMENT TO SELECT QUERY ANSWER --> OK --> SIGN Marcia Adams RN Clinical Registered Appraiser W) [phone] (f) [phone] [email or web address] PROVIDERS: Make your selection(s) from the choices in EACH section by typing an "x" and enter comments in the comment section. Please use your independent medical judgment in providing your response. This request does not imply that any particular answer is desired or expected. CLINICAL INDICATORS: (Providers should not edit this section) Based on documentation of " history of congestive heart failure related to LV systolic dysfunction" and "Lung sounds are wet this morning, and we will treat with additional dose of IV Lasix this morning". [id number]. Please provide further specificity regarding CHF. ACUITY: ( ) Acute ( ) Chronic (x ) Acute on Chronic ( ) Clinicallly unable to determine TYPE: ( x) Systolic (HFrEF - heart failure with reduced systolic function/EF) ( ) Diastolic (HFpEF - heart failure with preserved systolic function/EF) ( ) Combined Systolic/Diastolic ( ) Other, please specify: ( ) Clinically unable to determine ( ) The patient does NOT have CHF COMMENTS: PLEASE ALSO DOCUMENT RESPONSE IN PROGRESS NOTES AND/OR DISCHARGE SUMMARY Use of terms such as suspected, likely, or probable (associated with a specific diagnosis that is being evaluated, monitored, or treated as if it exists) are acceptable and can be restated in the discharge summary if not ruled out. MTDD
[2017-03-20] MEDS: MORPHINE 2 MG/1 ML SYRINGE IV PRN ×2 (11:29→23:58)
[2017-03-20] MEDS ORDERED: BUPIVACAINE MPF 0.25% 30 ML VIAL MISC INJ ONE (11:49)
[2017-03-20] MEDS ORDERED: TRIAMCINOLONE ACETONIDE 40 MG/1 ML VIAL MISC INJ ONE (11:53)
--- NOTE | 2017-03-20 11:55 | Pain Management Consult Note ---
Assessment and Plan (1) Shoulder bursitis Status: Acute Assessment and plan: His most pressing problem other than asking for stronger narcotic (he claims he does not take these outpatient) is shoulder bursitis on exam. I will inject this today at his request. His chest pain is not really chest wall although he has had multiple cardiac interventions and these are likely playing a role. He is smoking a vapor device as I enter the room. He also has gait, low back, leg pain complaints which he can follow up with [facility] outpatient if he desires further evaluation and treatment. He did not keep or make a previous appointment with us in the past. I cannot recommend continuing narcotic therapy past hospital discharge. Current Visit: Yes History of Present Illness Chief complaint: chest arm shoulder pain History of present illness: Mr. Haile is a 57 year old male who never kept his total pain Care appointment and is now in the hospital for evaluation of his complaints ruled out for cardiac contribution. He has multiple complaints including non reproducible constant chest pain without associated cardiac symptoms, left arm pain medial and not below the elbow worse with shoulder rotation and no neck pain, thoracic spine pain, LBP, and leg pain previously teated, and gait disturbance. He is using a vapor cigarette inhaler upon entry into the room... Home Medications Medication Instructions Recorded Confirmed Type Atorvastatin [Lipitor] 40 mg PO DAILY 03/18/17 03/18/17 History Carvedilol [Carvedilol] 3.125 mg PO DAILY 03/18/17 03/18/17 History Furosemide [Furosemide] 20 mg PO DAILY 03/18/17 03/18/17 History Lisinopril [Lisinopril] 2.5 mg PO DAILY 03/18/17 03/18/17 History Spironolactone 25 mg PO DAILY 03/18/17 03/18/17 History Tamsulosin [Flomax] 0.4 mg PO DAILY 03/18/17 03/18/17 History Allergies Allergy/AdvReac Type Severity Reaction Status Date / Time No Known Allergies Allergy Verified 03/18/17 01:07 Medical,Surgical,& Family Hx - Medical History Cardio: History of: CHF, CAD, Hypertension, LA, Pacemaker No history of: PVD Psychological: No history of: Anxiety Disorders, Depression Neurology: No history of: Cerebrovascular Accident, Dementia, Seizures, TIA Endocrine: History of: Dyslipidemia No history of: Diabetes Mellitus (IDDM), Diabetes Mellitus (NIDDM), Thyroid Disorder Respiratory: No history of: Bronchitis, Obstructive Sleep Apnea, Pulmonary Hypertension Renal: No history of: Renal Failure, Renal Problems Genitourinary: History of: Prostate Problems Gastrointestinal: No history of: Clostridium Difficile, Esophageal Varices, GERD, Gastrointestinal Bleed, Hematochezia Musculoskeletal: History of: Back/Neck Problems Hematology: No history of: Blood Transfusion Reaction, Bleeding Problems, Sickle Cell Disease, Hematologic Cancer Other: No history of: Cancer, HIV - Surgical History Cardiac Surgeries: Sugical HX of: Cardiac Catheterization, Cardiac Surgery, Internal Defibrillator Patient Denies: Carotid Endarterectomy HEENT Surgeries: Patient denies: Carotid Endarterectomy Abdominal Surgeries: Surgical HX of: Cholecystectomy Patient denies: Abdominal Surgery Orthopedic Surgeries: Patient denies;: Implanted Devices - Social History Smoking Status: Current every day smoker Frequency of Alcohol Use: Rarely Type of Drug Use: None Exam - Constitutional Vitals: Period Temp Pulse Resp BP Sys/[place] Pulse Ox Last 24 Hr 96.9 F-98.8 F 75-88 18-20 89-128/53-76 91-98 Results - Labs CBC & BMP: 03/20/17 05:14 03/20/17 05:14
--- NOTE | 2017-03-20 12:02 | Event Note ---
Left shoulder injection for bursitis. Consent, alcohol prep, .25% bupivicaine with 40 mg triamcinolone to the greater and lesser tubercles of the left humeral head without complication or difficulty.
--- NOTE | 2017-03-20 20:21 | Cardiology Progress Note ---
Beba, Shelli Amezquita RN, am scribing for, and in the presence of, Mik Kumar MD 20:21. Assessment and Plan - Time spent with patient Time spent with patient: Greater than 30 minutes (1) Chest pain Status: Chronic Assessment and plan: 57 year old black male with PMHx of CAD and CABG, has AICD implant with reported decreased LV function, EF 15% who now presents with atypical chest and left arm pain, possible AICD shock. 03/18/17: ASSESSMENT/PLAN: 1. CHEST PAIN - atypical, reproducible chest wall tenderness during exam. Cardiac biomarkers and EKG negative for ischemic change. Possibly musculoskeletal etiology. Denies recent or current exertional anginal complaint. Will treat for possible musculoskeltetal sources of discomfort with Ultram, Tylenol, Naproxen, Neurontin. Start PPI as atypical discomfort could be GI related. Initiate sertraline for anxiety as possible source of chest pain. 2. AICD DISCHARGE - [employer] device interrogated per [employer] pharmaceutical service representative this morning. Interrogation revealed episode of self sustained ventricular tachycardia, but there have been no shocks delivered. 3. HYPERTENSION - BP has been overall well controlled. Continue current medication regimen of with 4. HISTORY OF CHF - will hold off obtaining echocardiogram at this point. Mild BNP elevation, but no overt s/s heart failure at this time. Most likely previously history of congestive heart failure related to LV systolic dysfunction. He is not having orthopnea, PND, swelling of bilateral lower extremities. Continue diuresis with spironolactone and furosemide. Continue YUSRA inhibitor and beta alpesh. 5. HISTORY OF CAD - Previous coronary artery bypass grafting in 1997 per patient report with recent percutaneous coronary intervention in January 2016. No antiplatelet listed on current home medications. Denies knowledge of any contraindication to anticoagulation. 6. HYPERLIPIDEMIA - Continue atorvastatin. FLP in January 2017 unremarkable. Addendum : The patient has chest wall pain which exactly reproduces his pain. His blood cardiac iso-enzymes are negative. This would suggest may be chest wall pain Plan: Treat for chest wall pain. I discussed with the patient about doing a heart cath. He declines. I agree. We could do an outpatient stress test later Treat GI cause, treat muscle skeletal pain The patient thinks he had an AICD shock. He then interrogated. He has had no shock. There could be a component of anxiety We will treat with SSRI. Start sertraline 25 mg now and then nightly We will not repeat an echo. He had it four months ago at the time of the ICD. We will hold off on Naprosyn because it might adversely affect his heart failure renal function Regarding his CAD/coronary stent, he is apparently not on any antiplatelet medicines, aspirin is not even listed. Plan: Start aspirin 325 mg chewed now than 1 daily. He is over a year out from his last stent so may be is off the Plavix. We will follow closely. 03/19/17: ASSESSMENT/PLAN: 1. CHEST PAIN -chest wall pain which is reproducible. He has had some relief since yesterday. Current chest discomfort may be related to some mild volume overload. 2. PRESENCE OF AICD IMPLANT -device has been interrogated prior [employer] pharmaceutical service representative since admission. Interrogation revealed a single episode of self sustained VT, but there have been no shocks delivered. Device is functioning appropriately. 3. HYPERTENSION -chronic, and well controlled at this time. Continue as present. 4. HISTORY OF CHF -mild BNP elevation at admission but no overt heart failure symptoms. Lung sounds are wet this morning, and we will treat with additional dose of IV Lasix this morning. Monitor electrolytes and renal function. Monitor I/O, daily weight. 5. HISTORY OF CAD -history of CABG in 1997 per patient report with previous PCI a little over one year ago. ASA 325 mg by mouth has been started. He is not on Plavix 6. HYPERLIPIDEMIA -FLP in January unremarkable. Continue current dose of atorvastatin. We stopped his IV fluids Change his oral Lasix to furosemide 20 mg IV twice daily Check BMP in the a.m. Increase meds for pain-cautiously add some Naprosyn Consult pain management tomorrow-see if they can do a trigger point injection I have other suggestions He relates a history of using his arms to pick himself up for physical therapy. Maybe he strained his left chest and arm causing this pain We will also increase his gabapentin for the pain We will add some trazodone to help him sleep better at night. He has not slept well We will increase carvedilol because his heart rate is rapid We will decrease his spironolactone to allow slightly higher blood pressure Part of his low blood pressure probably relates to needing the generic Flomax We will follow-up labs in a.m. 03/20/17: ASSESSMENT/PLAN: 1. CHEST WALL PAIN - chest wall discomfort, remains reproducible. Reports minimal relief. Suspect this may be musculoskeletal related. Pain management consultation pending. 2. PRESENCE OF AICD IMPLANT - device interrogated at admission and functioning appropriately. No shocks have been delivered. 3. HYPERTENSION - borderline low BP today. 4. HISTORY OF CHF - BNP remains mildly elevated. Diuresed well with IV Lasix. Continue as present. Monitor electrolytes, renal function. 5. HISTORY OF CAD - history of CABG in with PCI approximately 14 months ago. Continue ASA. He is not on Plavix. No anginal complaint at this time. 6. HYPERLIPIDEMIA - Continue atorvastatin. The borderline blood pressure low blood pressure is being approached by reducing the dose of spironolactone The tachycardia is being approached by increasing the carvedilol to 3.25 mg every 6 hours with hold parameters His heart failure seems better with diuresis His chest wall pain will be helped by her pain management doctor No rising creatinine after a low-dose of the naproxen He may have to live with some of the chest wall pain if he is not much better with the TPI Current Visit: Yes (2) History of coronary artery disease Status: Acute Assessment and plan: SEE PLAN OF CARE LISTED ABOVE. Current Visit: Yes (3) History of coronary artery bypass graft Status: Chronic Assessment and plan: SEE PLAN OF CARE LISTED ABOVE. Current Visit: Yes (4) Hypertension Status: Chronic Assessment and plan: SEE PLAN OF CARE LISTED ABOVE. Current Visit: Yes (5) Hyperlipidemia Status: Chronic Assessment and plan: SEE PLAN OF CARE LISTED ABOVE. Current Visit: Yes (6) Presence of automatic cardioverter/defibrillator (AICD) Status: Chronic Assessment and plan: SEE PLAN OF CARE LISTED ABOVE. Current Visit: Yes (7) History of CHF (congestive heart failure) Status: Chronic Assessment and plan: SEE PLAN OF CARE LISTED ABOVE. 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 KUMAR (NEW) SUMMARY: Mr. Haile is a 57-year-old black male with risk factor significant for: Hypertension, dyslipidemia, tobacco abuse, sedentary lifestyle, personal and family history of premature coronary artery disease. Patient has previously been followed by cardiology Dr. Osullivan in [place], but he now wishes to establish care with [facility] cardiology with Dr. Kumar due to recently relocating to [place]. Reported past medical history includes coronary artery bypass grafting in 1997, percutaneous coronary intervention with stent placement in January 2016, and AICD implant. Patient reported "15% functioning capacity of the heart". He has had previous evaluations at [facility] , and most recently in October 2016 he presented for evaluation of left-sided chest pain with radiation to left arm and back, associated dyspnea, diaphoresis , dizziness, nausea and vomiting, heartburn. He has had no acute ischemic findings. He has had toxicology screens positive for alcohol and cocaine. [facility] presenting to emergency room by EMS with complaints of sudden onset of chest pain while at rest. He was also concerned he had experienced a shock from his AICD. He has not been ruled out for MD. CRTD has been interrogated, and found to be functioning appropriately and has not delivered any shocks. Patient has experienced some self sustained ventricular tachycardia as recently as March 16. BNP mildly elevated 451 on admit. March: Mr. Haile appears to be in no acute distress this morning. 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 Denies shortness of breath today and he reports that he had moderate amount urine output after receiving IV Lasix yesterday. Lungs sounds with improvement. Reports he is still continuing to have "burning" in the left chest, that he has a sharp pain in the middle of his chest when he tries to take in a deep breath, and he reports pain on left side of neck today. He is requesting that his morphine dosage be increased, and he reports that current medications ordered only "soothe the pain for a few minutes" but it is back within an hour. BNP without significant change from admission, 453 today. H&H stable. Electrolytes within acceptable range. Creatinine stable at 1.0. Borderline low BP today with SBP no lower than 90 mmHg. Pain management evaluation pending. Patient also reports some dizziness today, worse when standing. Exam (Progress Note) - Constitutional Vitals: Period Temp Pulse Resp BP Sys/[place] Pulse Ox Last 24 Hr 96.9 F-98.8 F 75-88 18-20 89-128/53-76 91-99 Exam: General appearance: normal weight, no acute distress - Head Head exam: Present: normal inspection, atraumatic. Absent: abrasion, contusion , hematoma, laceration - Eye Eye exam: Present: EOMI. Absent: periorbital swelling Pupils: Present: [place]. Absent: dilated, fixed - ENT ENT exam: Present: normal exam - Neck Neck exam: Present: normal inspection. Cervical discomfort. - Respiratory Respiratory exam: Present: chest wall tenderness. Scattered rales throughout, improved today. Absent: accessory muscle use, prolonged expiratory phase, wheezes - Cardiovascular Cardiovascular exam: Present: regular rate and rhythm. Absent: bradycardia, JVD - GI/Abdominal GI/Abdominal exam: Present: normal bowel sounds, tenderness, soft. Absent: ascites, distended, firm, guarding, mass - Extremities Exam Extremities exam: Present: normal capillary refill, full ROM. Absent: calf tenderness - Back Exam Back exam: Present: normal inspection. Absent: CVA tenderness (L), CVA tenderness (R), muscle spasm - Neurological Exam Neurological exam: Present: alert, oriented X3. Absent: abnormal gait - Psychiatric Psychiatric exam: Present: normal affect. Absent: depressed, flat affect - Skin Skin exam: Present: normal color, warm, dry, intact. Absent: abrasion, cyanosis , erythema, pallor, petechiae, rash Result/EKG - Labs CBC & BMP: 03/20/17 05:14 03/20/17 05:14 Lab Results: I have reviewed the past 24 hour labs Labs: Laboratory Results - last 24 hr 03/20/17 03/20/17 03/20/17 05:14 05:14 05:14 WBC 6.6 D RBC 4.38 Hgb 12.7 L Hct 39.0 L MCV 89.0 MCH 29 MCHC 32.6 RDW 14.6 Plt Count 260 MPV 10.1 Neut % (Auto) 52.7 Lymph % (Auto) 34.8 [place] % (Auto) 8.1 Eos % (Auto) 3.3 Baso % (Auto) 0.8 Neut # (Auto) 3.5 Lymph # (Auto) 2.3 [place] # (Auto) 0.5 Eos # (Auto) 0.2 Baso # (Auto) 0.1 Immature Gran % 0.3 Nucleated RBC % 0.0 Immature Gran # 0.02 Nucleated RBCs # 0.00 Sodium 141 Potassium 4.2 Chloride 104 Carbon Dioxide 30 Anion Gap 11.2 BUN 12 Creatinine 1.00 GFR Calculation 103 BUN/Creatinine Ratio 12.00 Glucose 106 Calculated Osmolality 280.3 Calcium 8.9 Magnesium 2.2 B-Natriuretic Peptide 453 H - EKG EKG results: interpreted by me, no acute changes EKG shows: sinus rhythm Stacy Yoder Dale, MD, personally performed the services described in this documentation, ascribed by Shelli Amezquita RN in my presence, and it is both accurate and complete .
[2017-03-20] MEDS: traZODone 50 MG TABLET PO SCH (21:23)
[2017-03-20] MEDS: SERTRALINE 25 MG TABLET PO SCH (21:23)
[2017-03-21 04:03] LABS: Basophils % 0.2 % (0.0-0.8); Eosinophils % 0.1 % (0.00-10.9); Hematocrit 37.9 VOL% (42.0-52.0); Hemoglobin 12.5 GM/DL (14.0-18.0); Immature Granulocytes % 0.4 %; Immature Granulocytes Absolute 0.04 #; Lymphocytes # 1.3 10*3/uL (1.4-4.0); Lymphocytes % 14.6 % (21.2-54.2); Mean Corpuscular Hemoglobin 29 PG (27-34); Mean Corpuscular Volume 88.6 FL (87-102); Mean Platelet Volume 10.2 FL (9.6-12.0); Monocytes # 0.5 10*3/uL (0.11-0.8); Monocytes % 5.4 % (1.7-12.7); Neutrophils # 7.2 10*3/uL (1.4-7.4); Neutrophils % 79.3 % (38.7-73.9); Platelet Count 261 T/CUMM (130-400); Red Blood Count 4.28 MC/CUMM (3.8-5.5); Red Cell Distribution Width 14.3 % (9.3-17.3); White Blood Count 9.1 T/CUMM (4-12)
[2017-03-21] MEDS: CARVEDILOL 3.125 MG TABLET PO SCH ×2 (05:39→12:23)
[2017-03-21] MEDS: traMADol 50 MG TABLET PO SCH (09:52)
[2017-03-21] MEDS: ATORVASTATIN 40 MG TABLET PO SCH (09:53)
[2017-03-21] MEDS: TAMSULOSIN 0.4 MG CAPSULE PO SCH (09:54)
[2017-03-21] MEDS: ASPIRIN CHEW 81 MG TABLET PO SCH (09:54)
[2017-03-21] MEDS: PANTOPRAZOLE 40 MG TABLET PO SCH (09:54)
[2017-03-21] MEDS: ACETAMINOPHEN 325 MG TABLET PO SCH (09:55)
[2017-03-21] MEDS: LISINOPRIL 2.5 MG TABLET PO SCH (09:55)
[2017-03-21] MEDS: GABAPENTIN 300 MG CAPSULE PO SCH (09:55)
[2017-03-21] MEDS: FUROSEMIDE 20 MG/2 ML VIAL IV SCH (09:56)
[2017-03-21] MEDS: SPIRONOLACTONE 25 MG TABLET PO SCH (10:03)
[2017-03-21 11:43] VITALS: BP 114/70
--- NOTE | 2017-03-21 13:40 | Discharge Summary ---
Alirio Yoder Vanessa, RN, am scribing for, and in the presence of, Mik Kumar MD 13:35. 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 KUMAR (NEW) SUMMARY: Mr. Haile is a 57-year-old black male with risk factor significant for: hypertension, dyslipidemia, tobacco abuse, sedentary lifestyle, personal and family history of premature coronary artery disease. Patient has previously been followed by cardiology Dr. Osullivan in [place], but he now wishes to establish care with [facility] cardiology with Dr. Kumar due to recently relocating to [place]. Reported past medical history includes coronary artery bypass grafting in 1997, percutaneous coronary intervention with stent placement in January 2016, and AICD implant. Patient reported "15% functioning capacity of the heart". He has had previous evaluations at [facility] , and most recently in October 2016 he presented for evaluation of left-sided chest pain with radiation to left arm and back, associated dyspnea, diaphoresis , dizziness, nausea and vomiting, heartburn. He has had no acute ischemic findings. He has had toxicology screens positive for alcohol and cocaine. Patient was admitted to [facility] telemetry in transfer from [facility] ER per EMS on March 18 for further evaluation of complaints of sudden onset of chest pain while at rest. He was also concerned he had experienced a shock from his AICD. CRTD has been interrogated since admission, and found to be functioning appropriately and has not delivered any shocks. Patient did have some self sustained ventricular tachycardia on March 16, but this did not require defibrillation. BNP mildly elevated 451 on admit, 453 on recheck. Since admission, he was ruled out for myocardial infarction and/or acute coronary syndrome. He continued to have some non-cardiac left chest wall pain, left arm pain, neck pain, and he was started regimen of Neurontin, acetaminophen, tramadol. He had no relief, and Naprosyn was prescribed. He was also seen in consultation by pain medicine. Dr. Veloz performed trigger point injection of the left shoulder on March 20 for bursitis. He has also had some hypotension, and medications have been adjusted accordingly. Patient reported he had some bright red bleeding in bowel movement the morning of March 20. No abdominal pain or other laverne bleeding. No further bleeding per report, and no stool specimen provided for stool guaiacs. Cell counts are unremarkable. This morning, patient appears to be feeling well, and he is ambulating around the room without use of walking cane and does not appear to be having much difficulty. No shortness of breath. Denies chest wall pain. Reports he has some intermittent left shoulder and neck discomfort, but says, "I am feeling much, much better today. I do want to go home today." Cardiac monitoring has remained stable with no ectopy, dysrhythmia seen. Electrolytes and renal function are within normal range. Cell counts remain unremarkable. Systolic BP is ranging 110 -130 mmHg with transient SBP of 95. At this time, it is felt patient has reached maximum hospital benefit and is stable for discharge home today. He will be given 2 week follow up appointment with Dr. Kumar with BMP, CBC, and EKG at time of visit. Patient reports he was called per Dr. Veloz' nurse yesterday afternoon and given an outpatient appointment to see him in clinic March 25. We have strongly encouraged him to keep this appointment, he verbalizes understanding, and he expresses that he will be sure to follow up with pain medicine. Of note, patient did admit to continuing to actively smoke approximately 1/2 PPD cigarettes. Since admission, consulting physicians and nursing staff have reported that patient is using electronic vapor cigarettes in his room. Greater than 10 minutes was spent discussing the merits, benefits of tobacco cessation and the alternatives to tobacco use. When I see the patient back on 04/10 will get records from [facility]. Will also consider doing an echo/Doppler He plans to follow-up with me as his local educational interpreter. - Time spent with patient Time with patient DS: Greater than 30 minutes Diagnosis - Discharge Diagnosis (1) Chest pain Status: Resolved (2) History of coronary artery disease Status: Chronic (3) History of coronary artery bypass graft Status: Chronic (4) Hypertension Status: Chronic (5) Hyperlipidemia Status: Chronic (6) Presence of automatic cardioverter/defibrillator (AICD) Status: Chronic (7) History of CHF (congestive heart failure) Status: Chronic Specialty Discharge - Follow Up or Referrals Follow up with: Mik Kumar MD [Physician] - 2 Weeks (Hospital follow up appointment with Dr. Kumar in 2 weeks with BMP, CBC, EKG. appt. for labs is 04/03/17 at [facility] at 9:[address] kumar is 04/10/17 at 8:40 at [facility]) Discharge Plan - Discharge Data Disposition: Disch To Home/Self Care Condition at Discharge: Stable Discharge Diet: heart healthy, low fat, low cholesterol, low salt diet Activity: resume usual activities as tolerated, increase activity as tolerated Hygiene: no restrictions Weight Bearing at Discharge: full weight bearing Contact your physician if you experience:: fever over 101, Difficulty voiding, Redness or swelling, Nausea/Vomiting, Shortness of breath, Bleeding, pain uncontrolled by pain medications - Discharge Medications New Acetaminophen Tab [Tylenol Tab] 325 mg PO BID tablet Aspirin 325 mg PO DAILY #100 tablet Carvedilol [Coreg] 6.25 mg PO BID #60 tablet Gabapentin Cap/Tab [Neurontin Cap/Tab] 300 mg PO TID #90 capsule Omeprazole 20 mg PO DAILY #30 tablet. Sertraline [Zoloft] 50 mg PO BEDTIME #30 tablet traMADol TAB [Ultram] 50 mg PO Q12H #14 tablet HYDROcodone/ACETAMIN 5-325 [Noonan 5-325] 1 tablet PO TID #20 tablet Spironolactone [Aldactone] 12.5 mg PO DAILY #30 tablet traZODone [Desyrel] 25 mg PO BEDTIME #30 tablet Continue Lisinopril 2.5 mg PO DAILY Furosemide 20 mg PO DAILY Tamsulosin [Flomax] 0.4 mg PO DAILY Atorvastatin [Lipitor] 40 mg PO DAILY Discontinued Spironolactone 25 mg PO DAILY Carvedilol [Carvedilol] 3.125 mg PO DAILY - Follow Up or Referral Follow Up: Mik Kumar MD [Physician] - 2 Weeks (Hospital follow up appointment with Dr. Kumar in 2 weeks with BMP, CBC, EKG. appt. for labs is 04/03/17 at [facility] at 9:[address] kumar is 04/10/17 at 8:40 at [facility]) - Forms/Instructions Exam - Constitutional Vitals: Period Temp Pulse Resp BP Sys/[place] Pulse Ox Last 24 Hr 98.2 F-98.8 F 74-91 16-20 82-129/51-73 92-99 Exam: General appearance: normal weight, no acute distress - Head Head exam: Present: normal inspection, atraumatic. Absent: abrasion, contusion , hematoma, laceration - Eye Eye exam: Present: EOMI. Absent: periorbital swelling Pupils: Present: [place]. Absent: dilated, fixed - ENT ENT exam: Present: normal exam - Neck Neck exam: Present: normal inspection. left neck discomfort, much better today.. - Respiratory Respiratory exam: Present: chest wall tenderness, much better today. Scattered rales throughout, improved today. Absent: accessory muscle use, prolonged expiratory phase, wheezes - Cardiovascular Cardiovascular exam: Present: regular rate and rhythm. Absent: bradycardia, JVD - GI/Abdominal GI/Abdominal exam: Present: normal bowel sounds, tenderness, soft. Absent: ascites, distended, firm, guarding, mass - Extremities Exam Extremities exam: Present: normal capillary refill, full ROM. Absent: calf tenderness - Back Exam Back exam: Present: normal inspection. Absent: CVA tenderness (L), CVA tenderness (R), muscle spasm - Neurological Exam Neurological exam: Present: alert, oriented X3. Absent: abnormal gait - Psychiatric Psychiatric exam: Present: normal affect. Absent: depressed, flat affect - Skin Skin exam: Present: normal color, warm, dry, intact. Absent: abrasion, cyanosis , erythema, pallor, petechiae, rash Discharge Results Procedures and tests throughout hospitalization: Pending Orders 03/20/17 19:03 Occult Blood, Stool Routine 03/22/17 04:00 BMP [Basic Metabolic Panel] IN AM Labs on day of discharge: Labs from last 24 hours 03/21/17 03:23 WBC 9.1 D RBC 4.28 Hgb 12.5 L Hct 37.9 L MCV 88.6 MCH 29 MCHC 33.0 RDW 14.3 Plt Count 261 MPV 10.2 Neut % (Auto) 79.3 H Lymph % (Auto) 14.6 L [place] % (Auto) 5.4 Eos % (Auto) 0.1 Baso % (Auto) 0.2 Neut # (Auto) 7.2 Lymph # (Auto) 1.3 L [place] # (Auto) 0.5 Eos # (Auto) 0.0 Baso # (Auto) 0.0 Immature Gran % 0.4 Nucleated RBC % 0.0 Immature Gran # 0.04 Nucleated RBCs # 0.00 - Imaging and Cardiology Procedure: Chest x-ray: image reviewed by me, report reviewed by me DS: Provider Attending physician on admission: Mik Kumar MD Consults: 03/18/17 14:36 Consult to Case Mgmt/Social Srvs [CONS] Routine Reason for Case Mgmt/Social Srvs: Home Health Consult Comment: DR ROCHA PRIMARY 03/19/17 10:14 Consult to Physician [CONS] Routine Comment: Consulting Provider: Christofer Veloz Consult to Specialist Group: Pain Management Person Notified: GLORIA AT [facility] Date Notified: 03/20/17 Time Notified: 08:30 Expected date of discharge: 03/21/17 IStacy Dale, MD, personally performed the services described in this documentation, ascribed by Shelli Amezquita, RN in my presence, and it is both accurate and complete [id number] .
--- NOTE | 2017-03-21 13:41 | Cardiology Progress Note ---
Beba, Shelli Amezquita RN, am scribing for, and in the presence of, Mik Kumar MD 13:40. Assessment and Plan - Time spent with patient Time spent with patient: Greater than 30 minutes (1) Chest pain Status: Resolved Assessment and plan: 57 year old black male with PMHx of CAD and CABG, has AICD implant with reported decreased LV function, EF 15% who now presents with atypical chest and left arm pain, possible AICD shock. 03/18/17: ASSESSMENT/PLAN: 1. CHEST PAIN - atypical, reproducible chest wall tenderness during exam. Cardiac biomarkers and EKG negative for ischemic change. Possibly musculoskeletal etiology. Denies recent or current exertional anginal complaint. Will treat for possible musculoskeltetal sources of discomfort with Ultram, Tylenol, Naproxen, Neurontin. Start PPI as atypical discomfort could be GI related. Initiate sertraline for anxiety as possible source of chest pain. 2. AICD DISCHARGE - [employer] device interrogated per [employer] industrial sales representative this morning. Interrogation revealed episode of self sustained ventricular tachycardia, but there have been no shocks delivered. 3. HYPERTENSION - BP has been overall well controlled. Continue current medication regimen of with 4. HISTORY OF CHF - will hold off obtaining echocardiogram at this point. Mild BNP elevation, but no overt s/s heart failure at this time. Most likely previously history of congestive heart failure related to LV systolic dysfunction. He is not having orthopnea, PND, swelling of bilateral lower extremities. Continue diuresis with spironolactone and furosemide. Continue YUSRA inhibitor and beta alpesh. 5. HISTORY OF CAD - Previous coronary artery bypass grafting in 1997 per patient report with recent percutaneous coronary intervention in January 2016. No antiplatelet listed on current home medications. Denies knowledge of any contraindication to anticoagulation. 6. HYPERLIPIDEMIA - Continue atorvastatin. FLP in January 2017 unremarkable. Addendum : The patient has chest wall pain which exactly reproduces his pain. His blood cardiac iso-enzymes are negative. This would suggest may be chest wall pain Plan: Treat for chest wall pain. I discussed with the patient about doing a heart cath. He declines. I agree. We could do an outpatient stress test later Treat GI cause, treat muscle skeletal pain The patient thinks he had an AICD shock. He then interrogated. He has had no shock. There could be a component of anxiety We will treat with SSRI. Start sertraline 25 mg now and then nightly We will not repeat an echo. He had it four months ago at the time of the ICD. We will hold off on Naprosyn because it might adversely affect his heart failure renal function Regarding his CAD/coronary stent, he is apparently not on any antiplatelet medicines, aspirin is not even listed. Plan: Start aspirin 325 mg chewed now than 1 daily. He is over a year out from his last stent so may be is off the Plavix. We will follow closely. 03/19/17: ASSESSMENT/PLAN: 1. CHEST PAIN -chest wall pain which is reproducible. He has had some relief since yesterday. Current chest discomfort may be related to some mild volume overload. 2. PRESENCE OF AICD IMPLANT -device has been interrogated prior [place] industrial sales representative since admission. Interrogation revealed a single episode of self sustained VT, but there have been no shocks delivered. Device is functioning appropriately. 3. HYPERTENSION -chronic, and well controlled at this time. Continue as present. 4. HISTORY OF CHF -mild BNP elevation at admission but no overt heart failure symptoms. Lung sounds are wet this morning, and we will treat with additional dose of IV Lasix this morning. Monitor electrolytes and renal function. Monitor I/O, daily weight. 5. HISTORY OF CAD -history of CABG in 1997 per patient report with previous PCI a little over one year ago. ASA 325 mg by mouth has been started. He is not on Plavix 6. HYPERLIPIDEMIA -FLP in January unremarkable. Continue current dose of atorvastatin. We stopped his IV fluids Change his oral Lasix to furosemide 20 mg IV twice daily Check BMP in the a.m. Increase meds for pain-cautiously add some Naprosyn Consult pain management tomorrow-see if they can do a trigger point injection I have other suggestions He relates a history of using his arms to pick himself up for physical therapy. Maybe he strained his left chest and arm causing this pain We will also increase his gabapentin for the pain We will add some trazodone to help him sleep better at night. He has not slept well We will increase carvedilol because his heart rate is rapid We will decrease his spironolactone to allow slightly higher blood pressure Part of his low blood pressure probably relates to needing the generic Flomax We will follow-up labs in a.m. 03/20/17: ASSESSMENT/PLAN: 1. CHEST WALL PAIN - chest wall discomfort, remains reproducible. Reports minimal relief. Suspect this may be musculoskeletal related. Pain management consultation pending. 2. PRESENCE OF AICD IMPLANT - device interrogated at admission and functioning appropriately. No shocks have been delivered. 3. HYPERTENSION - borderline low BP today. 4. HISTORY OF CHF - BNP remains mildly elevated. Diuresed well with IV Lasix. Continue as present. Monitor electrolytes, renal function. 5. HISTORY OF CAD - history of CABG in with PCI approximately 14 months ago. Continue ASA. He is not on Plavix. No anginal complaint at this time. 6. HYPERLIPIDEMIA - Continue atorvastatin. The borderline blood pressure low blood pressure is being approached by reducing the dose of spironolactone The tachycardia is being approached by increasing the carvedilol to 3.25 mg every 6 hours with hold parameters His heart failure seems better with diuresis His chest wall pain will be helped by her pain management doctor No rising creatinine after a low-dose of the naproxen He may have to live with some of the chest wall pain if he is not much better with the TPI --The patient states he had some blood in the stool. Will check stool guaiacs. I discussed it with his nurse to try to document this finding. If it is true , he can have outpatient evaluation. Will recheck a CBC. 03/21/17: ASSESSMENT/PLAN: 1. CHEST WALL/SHOULDER/NECK PAIN - 2. PRESENCE OF AICD IMPLANT - 3. HYPERTENSION - 4. HISTORY OF CHF - 5. HISTORY OF CAD - 6. HYPERLIPIDEMIA -see discharge summary Current Visit: Yes (2) History of coronary artery disease Status: Chronic Assessment and plan: SEE PLAN OF CARE LISTED ABOVE. Current Visit: Yes (3) History of coronary artery bypass graft Status: Chronic Assessment and plan: SEE PLAN OF CARE LISTED ABOVE. Current Visit: Yes (4) Hypertension Status: Chronic Assessment and plan: SEE PLAN OF CARE LISTED ABOVE. Current Visit: Yes (5) Hyperlipidemia Status: Chronic Assessment and plan: SEE PLAN OF CARE LISTED ABOVE. Current Visit: Yes (6) Presence of automatic cardioverter/defibrillator (AICD) Status: Chronic Assessment and plan: SEE PLAN OF CARE LISTED ABOVE. Current Visit: Yes (7) History of CHF (congestive heart failure) Status: Chronic Assessment and plan: SEE PLAN OF CARE LISTED ABOVE. Current Visit: Yes Cardiology - PN: Subj Interval history: PRIMARY SALES COMMUNICATIONS MANAGER: DR. KUMAR (NEW) SUMMARY: Mr. Haile is a 57-year-old black male with risk factor significant for: Hypertension, dyslipidemia, tobacco abuse, sedentary lifestyle, personal and family history of premature coronary artery disease. Patient has previously been followed by cardiology Dr. Osullivan in [place], but he now wishes to establish care with [facility] cardiology with Dr. Kumar due to recently relocating to [place]. Reported past medical history includes coronary artery bypass grafting in 1997, percutaneous coronary intervention with stent placement in January 2016, and AICD implant. Patient reported "15% functioning capacity of the heart". He has had previous evaluations at [facility] , and most recently in October 2016 he presented for evaluation of left-sided chest pain with radiation to left arm and back, associated dyspnea, diaphoresis , dizziness, nausea and vomiting, heartburn. He has had no acute ischemic findings. He has had toxicology screens positive for alcohol and cocaine. Patient is currently admitted to [facility] after presenting to emergency room by EMS with complaints of sudden onset of chest pain while at rest. He was also concerned he had experienced a shock from his AICD. He has not been ruled out for RI. CRTD has been interrogated, and found to be functioning appropriately and has not delivered any shocks. Patient had experienced some self sustained ventricular tachycardia as recently as March 16. BNP mildly elevated 451 on admit. March: Patient doing well this morning. He is awake and alert, and he is ambulating around the room. Reports he is feeling much better this morning, and he is not experiencing any chest pain. He does have some continued left shoulder discomfort. Reports relief after injection provided prior Dr. Veloz yesterday afternoon. We do appreciate pain medicine evaluation and recommendations. Afebrile, vitals stable. Apparently had some bright red blood in bowel movement yesterday morning, but has not had additional bowel movement since that time to evaluate for Hemoccult. No abdominal pain. Appetite is great, and he does not have any nausea or vomiting. H&H 12.5/37.9. Labs unremarkable. Systolic BP 110-130 mmHg. Sinus rhythm per claims sorter without overt ectopy or sustained dysrhythmia. Exam (Progress Note) - Constitutional Vitals: Period Temp Pulse Resp BP Sys/[place] Pulse Ox Last 24 Hr 98.2 F-98.8 F 74-91 16-20 82-129/51-73 92-99 Exam: General appearance: normal weight, no acute distress - Head Head exam: Present: normal inspection, atraumatic. Absent: abrasion, contusion , hematoma, laceration - Eye Eye exam: Present: EOMI. Absent: periorbital swelling Pupils: Present: [place]. Absent: dilated, fixed - ENT ENT exam: Present: normal exam - Neck Neck exam: Present: normal inspection. Cervical discomfort. - Respiratory Respiratory exam: Present: chest wall tenderness. Scattered rales throughout, improved today. Absent: accessory muscle use, prolonged expiratory phase, wheezes - Cardiovascular Cardiovascular exam: Present: regular rate and rhythm. Absent: bradycardia, JVD - GI/Abdominal GI/Abdominal exam: Present: normal bowel sounds, tenderness, soft. Absent: ascites, distended, firm, guarding, mass - Extremities Exam Extremities exam: Present: normal capillary refill, full ROM. Absent: calf tenderness - Back Exam Back exam: Present: normal inspection. Absent: CVA tenderness (L), CVA tenderness (R), muscle spasm - Neurological Exam Neurological exam: Present: alert, oriented X3. Absent: abnormal gait - Psychiatric Psychiatric exam: Present: normal affect. Absent: depressed, flat affect - Skin Skin exam: Present: normal color, warm, dry, intact. Absent: abrasion, cyanosis , erythema, pallor, petechiae, rash Result/EKG - Labs CBC & BMP: 03/21/17 03:23 03/20/17 05:14 Lab Results: I have reviewed the past 24 hour labs Labs: Laboratory Results - last 24 hr 03/21/17 03:23 WBC 9.1 D RBC 4.28 Hgb 12.5 L Hct 37.9 L MCV 88.6 MCH 29 MCHC 33.0 RDW 14.3 Plt Count 261 MPV 10.2 Neut % (Auto) 79.3 H Lymph % (Auto) 14.6 L Andrew % (Auto) 5.4 Eos % (Auto) 0.1 Baso % (Auto) 0.2 Neut # (Auto) 7.2 Lymph # (Auto) 1.3 L Andrew # (Auto) 0.5 Eos # (Auto) 0.0 Baso # (Auto) 0.0 Immature Gran % 0.4 Nucleated RBC % 0.0 Immature Gran # 0.04 Nucleated RBCs # 0.00 - EKG EKG results: interpreted by me, no acute changes EKG shows: sinus rhythm Specialty Discharge - Follow Up or Referrals Follow up with: Mik Kumar MD [Physician] - 2 Weeks (Hospital follow up appointment with Dr. Kumar in 2 weeks with BMP, CBC, EKG. appt. for labs is 04/03/17 at [facility] at 9:[address] kumar is 04/10/17 at 8:40 at [facility]) I, Mik Kumar MD, personally performed the services described in this documentation, ascribed by Shelli Amezquita, RN in my presence, and it is both accurate and complete 340 .
== END 2017-03-21 14:52 | disposition home health service (06) | DRG 313 ==
LOC: EDBD → EDUNIT# → N.ED 00:49 → N.EDINP 02:56 → N.TELEN 03:43
PROVIDERS: ADMIT Internal Medicine Cardiovascular Disease; ATTEND Internal Medicine Cardiovascular Disease

== ENCOUNTER 2018-08-03 01:29 | Observation (INO) ==
[2018-08-03] MEDS ORDERED: ASPIRIN 325 MG TABLET PO STA (01:54)
[2018-08-03] MEDS ORDERED: SODIUM CHLORIDE 0.9% 1,000 ML IV STA (01:54)
[2018-08-03] MEDS ORDERED: ONDANSETRON 4 MG/2 ML VIAL IV ONE (01:55)
[2018-08-03] MEDS ORDERED: MORPHINE 4 MG/1 ML VIAL IV STA (01:55)
[2018-08-03 02:08] LABS: Basophils # 0.1 10*3/uL (0.0-0.2); Basophils % 0.8 % (0.0-0.8); Eosinophils # 0.2 10*3/uL (0.0-0.87); Eosinophils % 2.2 % (0.00-10.9); Hematocrit 37.3 VOL% (42.0-52.0); Hemoglobin 12.3 GM/DL (14.0-18.0); Immature Granulocytes % 0.3 %; Immature Granulocytes Absolute 0.03 #; Lymphocytes % 22.8 % (21.2-54.2); Mean Corpuscular Hemoglobin 29 PG (27-34); Mean Corpuscular Volume 88.2 FL (87-102); Mean Platelet Volume 9.4 FL (9.6-12.0); Monocytes # 0.7 10*3/uL (0.11-0.8); Monocytes % 8.3 % (1.7-12.7); Neutrophils # 5.8 10*3/uL (1.4-7.4); Neutrophils % 65.6 % (38.7-73.9); Platelet Count 299 T/CUMM (130-400); Red Blood Count 4.23 MC/CUMM (3.8-5.5); Red Cell Distribution Width 14.5 % (9.3-17.3); White Blood Count 8.8 T/CUMM (4-12)
[2018-08-03 02:13] LABS: PT Patient Result 10.6 SECS
[2018-08-03 02:27] LABS: Alanine Aminotransferase 11 U/L (16-61); Albumin 2.9 G/DL (3.4-5.0); Alkaline Phosphatase 137 U/L (45-117); Aspartate Amino Transferase 9 U/L (0-37); Bilirubin,Total < 0.39 MG/DL (0.2-1.0); Blood Urea Nitrogen 10 MG/DL (7-18); Calcium 8.5 MG/DL (8.5-10.1); Glucose 98 MG/DL (74-106); Osmolality,Calculated 275.5 MOS/KG (273-304); Potassium 3.6 MMOL/L (3.5-5.1); Sodium 139 MMOL/L (136-145); Total Protein 7.8 G/DL (6.4-8.3)
[2018-08-03 04:00] LABS: Barbiturates Screen,Urine Negative (Negative); Benzodiazepines Screen,Urine Negative (Negative); Cannabinoid Screen,Urine Negative (Negative); Opiate Screen,Urine Positive (Negative); Phencyclidine Screen,Urine Negative (Negative)
[2018-08-03] MEDS ORDERED: KETOROLAC 30 MG/1 ML VIAL IV STA (04:13)
[2018-08-03] MEDS ORDERED: KETOROLAC 30 MG/1 ML VIAL ONE (04:15)
[2018-08-03] MEDS ORDERED: ONDANSETRON 4 MG/2 ML VIAL IV PRN (05:30)
[2018-08-03] MEDS ORDERED: ACETAMINOPHEN 325 MG TABLET PO PRN (05:30)
[2018-08-03] MEDS ORDERED: SPIRONOLACTONE 25 MG TABLET PO SCH (10:30)
[2018-08-03] MEDS ORDERED: CARVEDILOL 3.125 MG TABLET PO SCH (10:30)
[2018-08-03] MEDS ORDERED: NALTREXONE PO SCH (10:30)
[2018-08-03] MEDS ORDERED: GABAPENTIN 300 MG CAPSULE PO SCH (10:30)
[2018-08-03] MEDS ORDERED: MORPHINE SULFATE PO SCH (10:30)
[2018-08-03] MEDS ORDERED: FUROSEMIDE 80 MG TABLET PO SCH (10:30)
[2018-08-03] MEDS ORDERED: LISINOPRIL 2.5 MG TABLET PO SCH (10:30)
[2018-08-03] MEDS ORDERED: PANTOPRAZOLE 40 MG TABLET PO SCH (10:30)
[2018-08-03] MEDS ORDERED: ASPIRIN 325 MG TABLET PO SCH (10:30)
[2018-08-03] MEDS ORDERED: FINASTERIDE 5 MG TABLET PO SCH (10:30)
[2018-08-03 11:59] VITALS: BP 101/62
[2018-08-03 13:45] LABS: Apearance,Urine CLEAR (Clear); Bilirubin,Urine Negative (Negative); Blood, Urine Small mg/dL (Negative); Glucose,Urine (UA) Negative (Negative); Ketones,Urine Negative (Negative); Mucus,Urine Occasional /LPF (Occasional); Nitrite,Urine Negative (Negative); Protein,Urine Negative; RBC,Urine 10 /HPF (0-4); Squamous Epithelial Cell,Urine Occasional /HPF (0-10); Urine Color Yellow (Yellow); Urine Specific Gravity 1.024 (1.001-1.035); WBC,Urine 10 /HPF (0-6)
[2018-08-03] MEDS ORDERED: ATORVASTATIN 40 MG TABLET PO SCH (21:00)
[2018-08-03] MEDS ORDERED: traZODone 50 MG TABLET PO SCH (21:00)
[2018-08-03] MEDS ORDERED: traMADol 50 MG TABLET PO SCH (21:00)
[2018-08-03] MEDS ORDERED: DOXEPIN HCL 6 MG PO SCH (21:00)
[2018-08-03] MEDS ORDERED: SERTRALINE 100 MG TABLET PO SCH (21:00)
[2018-08-03] MEDS ORDERED: TAMSULOSIN 0.4 MG CAPSULE PO SCH (21:00)
== END 2018-08-03 14:33 | disposition home or self-care (01) ==
LOC: EDUNIT# → EDBD → N.ED 01:29 → N.EDINP 01:29 → N.TELEN 03:45
PROVIDERS: ADMIT Internal Medicine Cardiovascular Disease; ATTEND Internal Medicine Cardiovascular Disease

== ENCOUNTER 2018-08-07 15:53 | Inpatient (IN) ==
[2018-08-07] MEDS ORDERED: MORPHINE 4 MG/1 ML VIAL IV STA ×2 (17:06→17:07)
[2018-08-07] MEDS ORDERED: ONDANSETRON 4 MG/2 ML VIAL IV STA (17:07)
[2018-08-07 17:53] LABS: Basophils # 0.1 10*3/uL (0.0-0.2); Basophils % 1.1 % (0.0-0.8); Eosinophils # 0.1 10*3/uL (0.0-0.87); Eosinophils % 1.9 % (0.00-10.9); Hematocrit 36.9 VOL% (42.0-52.0); Immature Granulocytes % 0.3 %; Immature Granulocytes Absolute 0.02 #; Lymphocytes # 1.4 10*3/uL (1.4-4.0); Lymphocytes % 18.1 % (21.2-54.2); Mean Corpuscular HGB Conc 32.5 GM/DL (32-36); Mean Corpuscular Hemoglobin 29 PG (27-34); Mean Corpuscular Volume 88.7 FL (87-102); Mean Platelet Volume 9.8 FL (9.6-12.0); Monocytes # 0.5 10*3/uL (0.11-0.8); Monocytes % 7.1 % (1.7-12.7); Neutrophils # 5.4 10*3/uL (1.4-7.4); Neutrophils % 71.5 % (38.7-73.9); Platelet Count 275 T/CUMM (130-400); Red Blood Count 4.16 MC/CUMM (3.8-5.5); Red Cell Distribution Width 14.5 % (9.3-17.3); White Blood Count 7.5 T/CUMM (4-12)
[2018-08-07 18:17] LABS: Alanine Aminotransferase 11 U/L (16-61); Albumin 2.8 G/DL (3.4-5.0); Alkaline Phosphatase 131 U/L (45-117); Aspartate Amino Transferase 14 U/L (0-37); Bilirubin,Total < 0.39 MG/DL (0.2-1.0); Blood Urea Nitrogen 8 MG/DL (7-18); Calcium 8.4 MG/DL (8.5-10.1); Glucose 91 MG/DL (74-106); Osmolality,Calculated 276.4 MOS/KG (273-304); Potassium 3.6 MMOL/L (3.5-5.1); Sodium 140 MMOL/L (136-145); Total Protein 7.3 G/DL (6.4-8.3)
[2018-08-07 18:19] LABS: Troponin I 0.952 NG/ML (0.00-0.045)
[2018-08-07] MEDS ORDERED: MAGNESIUM SULF RIDER 2 GM in PREMIX 1 EACH IV STA (18:50)
[2018-08-07] MEDS ORDERED: POTASSIUM CHLORIDE 20 MEQ TABLET PO STA (18:51)
[2018-08-07] MEDS ORDERED: ONDANSETRON 4 MG/2 ML VIAL IV PRN (18:53)
[2018-08-07] MEDS: HYDROmorphone 2 MG/1 ML VIAL IV PRN (21:41)
[2018-08-07] MEDS ORDERED: SERTRALINE 100 MG TABLET PO SCH (22:30)
[2018-08-07] MEDS ORDERED: POTASSIUM CHLORIDE 20 MEQ TABLET PO ONE (22:30)
[2018-08-07] MEDS ORDERED: ATORVASTATIN 40 MG TABLET PO SCH (22:30)
[2018-08-07] MEDS: GABAPENTIN 300 MG CAPSULE PO SCH (22:34)
[2018-08-07] MEDS: ASCORBIC ACID 500 MG TABLET PO SCH (22:35)
[2018-08-08 05:55] LABS: Calcium 8.7 MG/DL (8.5-10.1); Osmolality,Calculated 276.4 MOS/KG (273-304); Potassium 4.3 MMOL/L (3.5-5.1)
[2018-08-08 05:57] LABS: Calcium 8.7 MG/DL (8.5-10.1); Osmolality,Calculated 276.4 MOS/KG (273-304); Potassium 4.4 MMOL/L (3.5-5.1)
[2018-08-08] MEDS: HYDROmorphone 2 MG/1 ML VIAL IV PRN ×2 (07:48→12:20)
[2018-08-08] MEDS ORDERED: CARVEDILOL 6.25 MG TABLET PO SCH (08:00)
[2018-08-08] MEDS ORDERED: ASPIRIN EC 81 MG TABLET PO SCH (09:00)
[2018-08-08] MEDS ORDERED: CLOPIDOGREL 75 MG TABLET PO SCH (09:00)
[2018-08-08] MEDS ORDERED: LISINOPRIL 10 MG TABLET PO SCH (09:00)
[2018-08-08] MEDS ORDERED: INFLUENZA VIRUS VACCINE 0.5 ML SYRINGE IM ONE (09:00)
[2018-08-08] MEDS ORDERED: FUROSEMIDE 20 MG TABLET PO SCH (09:00)
[2018-08-08] MEDS: ASCORBIC ACID 500 MG TABLET PO SCH (10:17)
[2018-08-08] MEDS: GABAPENTIN 300 MG CAPSULE PO SCH (10:17)
[2018-08-08 12:24] VITALS: BP 103/60
[2018-08-08] MEDS ORDERED: DIGOXIN 0.125 MG TABLET PO SCH (13:00)
== END 2018-08-08 14:00 | disposition home or self-care (01) | DRG 641 ==
LOC: EDBD → EDUNIT# → N.ED 15:53 → N.EDINP 18:51 → N.TELEN 19:29
PROVIDERS: ADMIT Internal Medicine Cardiovascular Disease; ATTEND Internal Medicine Cardiovascular Disease

== ENCOUNTER 2019-02-05 10:04 | Inpatient (IN) ==
[2019-02-05] MEDS ORDERED: ONDANSETRON 4 MG/2 ML VIAL IV PRN (10:44)
[2019-02-05] MEDS ORDERED: MAGNESIUM SULF RIDER 4 GM in PREMIX 1 EACH IV PRN (10:44)
[2019-02-05] MEDS ORDERED: ACETAMINOPHEN 325 MG TABLET PO PRN (10:44)
[2019-02-05] MEDS ORDERED: DOCUSATE SODIUM 100 MG CAPSULE PO PRN (10:44)
[2019-02-05] MEDS ORDERED: ZALEPLON 5 MG CAPSULE PO PRN (10:44)
[2019-02-05] MEDS ORDERED: MAGNESIUM SULF RIDER 2 GM in PREMIX 1 EACH IV PRN (10:44)
[2019-02-05 13:26] LABS: Basophils # 0.1 10*3/uL (0.0-0.2); Basophils % 0.9 % (0.0-0.8); Eosinophils # 0.1 10*3/uL (0.0-0.87); Eosinophils % 1.8 % (0.00-10.9); Hematocrit 38.7 VOL% (42.0-52.0); Hemoglobin 11.7 GM/DL (14.0-18.0); Immature Granulocytes % 0.4 %; Immature Granulocytes Absolute 0.02 #; Lymphocytes # 1.7 10*3/uL (1.4-4.0); Lymphocytes % 29.4 % (21.2-54.2); Mean Corpuscular HGB Conc 30.2 GM/DL (32-36); Mean Platelet Volume 9.9 FL (9.6-12.0); Monocytes % 9.5 % (1.7-12.7); Platelet Count 239 T/CUMM (130-400); White Blood Count 5.7 T/CUMM (4-12)
[2019-02-05 13:52] LABS: Troponin I < 0.015 NG/ML (0.00-0.045)
[2019-02-05] MEDS ORDERED: AMIODARONE INJ 450 MG in DEXTROSE 5% 241 ML IV SCH (14:00)
[2019-02-05 14:02] LABS: Alanine Aminotransferase 22 U/L (16-61); Albumin 2.7 G/DL (3.4-5.0); Alkaline Phosphatase 111 U/L (45-117); Aspartate Amino Transferase 15 U/L (0-37); Bilirubin,Total < 0.39 MG/DL (0.2-1.0); Blood Urea Nitrogen 11 MG/DL (7-18); Calcium 8.4 MG/DL (8.5-10.1); Glucose 94 MG/DL (74-106); Osmolality,Calculated 271.8 MOS/KG (273-304); Total Protein 6.6 G/DL (6.4-8.3)
[2019-02-05 14:19] LABS: Eosinophils 2 % (0-10); Lymphocytes 22 % (20-55); Segmented Neutrophils 69 % (50-85); Total Cells Counted 100
[2019-02-05 14:20] LABS: Macrocytosis Slight; Microcytosis 1+; Platelet Estimate Adequate; Polychromasia Slight
[2019-02-05] MEDS ORDERED: SODIUM CHLORIDE 0.9% 1,000 ML IV SCH ×2 (14:22)
[2019-02-05] MEDS ORDERED: diphenhydrAMINE CAP 25 MG CAPSULE PO ONE (14:23)
[2019-02-05] MEDS ORDERED: DIAZEPAM 5 MG TABLET PO ONE (14:23)
[2019-02-05 15:18] LABS: Apearance,Urine CLEAR (Clear); Bacteria,Urine Occasional /HPF (Few); Bilirubin,Urine Negative (Negative); Blood, Urine Small mg/dL (Negative); Glucose,Urine (UA) Negative (Negative); Hyaline Casts,Urine 10 /LPF (0-3); Ketones,Urine Negative (Negative); Mucus,Urine Many /LPF (Occasional); Nitrite,Urine Negative (Negative); Protein,Urine 30 MG/DL; RBC,Urine 2 /HPF (0-4); Urine Color Amber (Yellow); Urine Specific Gravity 1.026 (1.001-1.035); WBC,Urine 3 /HPF (0-6)
[2019-02-05] MEDS: ASPIRIN EC 81 MG TABLET PO SCH (15:30)
[2019-02-05] MEDS ORDERED: LIDOCAINE 1% 20 ML VIAL ONE (16:11)
[2019-02-05] MEDS ORDERED: MIDAZOLAM 2 MG/2 ML VIAL ONE (16:31)
[2019-02-05] MEDS ORDERED: fentaNYL 100 MCG/2 ML VIAL ONE (16:31)
[2019-02-05] MEDS ORDERED: diphenhydrAMINE 50 MG/1 ML VIAL ONE (16:56)
[2019-02-05] MEDS ORDERED: HEPARIN 5,000 UNIT/1 ML VIAL ONE (17:19)
[2019-02-05] MEDS: AMIODARONE 200 MG TABLET PO SCH ×2 (18:21→21:44)
[2019-02-05] MEDS ORDERED: MORPHINE 4 MG/1 ML VIAL IV PRN (18:22)
[2019-02-05 20:07] LABS: Troponin I < 0.015 NG/ML (0.00-0.045)
[2019-02-05] MEDS: ATORVASTATIN 40 MG TABLET PO SCH (21:43)
[2019-02-05] MEDS: SERTRALINE 100 MG TABLET PO SCH (21:44)
[2019-02-05] MEDS: ASCORBIC ACID 500 MG TABLET PO SCH (21:44)
[2019-02-05] MEDS: CARVEDILOL 6.25 MG TABLET PO SCH (21:44)
[2019-02-05] MEDS: MAGNESIUM CHLORIDE 64 MG TABLET PO SCH (21:44)
[2019-02-05] MEDS ORDERED: ALBUTEROL/IPRATROPIUM 3 ML NEB RESP TX SCH (22:00)
[2019-02-05] MEDS: ALBUTEROL/IPRATROPIUM 3 ML NEB RESP TX SCH (23:41)
[2019-02-06] MEDS: AMIODARONE INJ 450 MG in DEXTROSE 5% 241 ML IV SCH ×2 (00:50→10:52)
[2019-02-06 04:42] LABS: Basophils % 0.5 % (0.0-0.8); Eosinophils # 0.2 10*3/uL (0.0-0.87); Eosinophils % 2.7 % (0.00-10.9); Hematocrit 34.9 VOL% (42.0-52.0); Hemoglobin 10.7 GM/DL (14.0-18.0); Immature Granulocytes % 0.5 %; Immature Granulocytes Absolute 0.03 #; Lymphocytes # 2.2 10*3/uL (1.4-4.0); Lymphocytes % 35.7 % (21.2-54.2); Mean Corpuscular HGB Conc 30.7 GM/DL (32-36); Mean Corpuscular Volume 89.3 FL (87-102); Mean Platelet Volume 10.1 FL (9.6-12.0); Monocytes % 8.5 % (1.7-12.7); Neutrophils % 52.1 % (38.7-73.9); Platelet Count 214 T/CUMM (130-400); Red Blood Count 3.91 MC/CUMM (3.8-5.5); Red Cell Distribution Width 15.1 % (9.3-17.3)
[2019-02-06 05:03] LABS: Albumin 2.4 G/DL (3.4-5.0); Bilirubin,Total 0.4 MG/DL (0.2-1.0); Calcium 8.3 MG/DL (8.5-10.1); Osmolality,Calculated 274.7 MOS/KG (273-304); Total Protein 6.5 G/DL (6.4-8.3)
[2019-02-06 05:04] LABS: Risk Ratio 3.59; VLDL CHOLESTEROL 19.2 MG/DL
[2019-02-06 05:28] LABS: Platelet Estimate Adequate
[2019-02-06] MEDS: ALBUTEROL/IPRATROPIUM 3 ML NEB RESP TX SCH (07:11)
[2019-02-06] MEDS: CLOPIDOGREL 75 MG TABLET PO SCH (08:56)
[2019-02-06] MEDS: CARVEDILOL 6.25 MG TABLET PO SCH ×2 (08:56→21:58)
[2019-02-06] MEDS: PANTOPRAZOLE 40 MG TABLET PO SCH (08:56)
[2019-02-06] MEDS: AMIODARONE 200 MG TABLET PO SCH ×2 (08:56→21:58)
[2019-02-06] MEDS: ASPIRIN EC 81 MG TABLET PO SCH (08:56)
[2019-02-06] MEDS: ASCORBIC ACID 500 MG TABLET PO SCH ×2 (08:56→21:58)
[2019-02-06] MEDS: POTASSIUM CHLORIDE 10 MEQ TABLET PO SCH (08:56)
[2019-02-06] MEDS: FUROSEMIDE 20 MG TABLET PO SCH (08:56)
[2019-02-06] MEDS: MAGNESIUM CHLORIDE 64 MG TABLET PO SCH ×2 (08:56→21:58)
[2019-02-06] MEDS ORDERED: ALBUTEROL 1.25 MG/3 ML NEB RESP TX PRN (13:00)
[2019-02-06] MEDS: MEXILETINE 150 MG CAPSULE PO SCH ×2 (14:45→21:59)
[2019-02-06] MEDS: LISINOPRIL 2.5 MG TABLET PO SCH (16:03)
[2019-02-06] MEDS: ATORVASTATIN 40 MG TABLET PO SCH (21:58)
[2019-02-06] MEDS: SERTRALINE 100 MG TABLET PO SCH (21:59)
[2019-02-07 04:10] LABS: Basophils % 0.5 % (0.0-0.8); Eosinophils # 0.2 10*3/uL (0.0-0.87); Eosinophils % 2.8 % (0.00-10.9); Hematocrit 34.7 VOL% (42.0-52.0); Hemoglobin 10.7 GM/DL (14.0-18.0); Immature Granulocytes % 0.3 %; Immature Granulocytes Absolute 0.02 #; Lymphocytes # 2.3 10*3/uL (1.4-4.0); Lymphocytes % 36.9 % (21.2-54.2); Mean Corpuscular HGB Conc 30.8 GM/DL (32-36); Mean Corpuscular Volume 89.2 FL (87-102); Mean Platelet Volume 10.7 FL (9.6-12.0); Monocytes % 6.5 % (1.7-12.7); Platelet Count 237 T/CUMM (130-400); Red Blood Count 3.89 MC/CUMM (3.8-5.5); Red Cell Distribution Width 14.9 % (9.3-17.3); White Blood Count 6.3 T/CUMM (4-12)
[2019-02-07 04:21] LABS: Osmolality,Calculated 278.3 MOS/KG (273-304)
[2019-02-07 05:58] LABS: Anisocytosis Slight; Eosinophils 2 % (0-10); Lymphocytes 25 % (20-55); Platelet Estimate Adequate; Segmented Neutrophils 68 % (50-85); Total Cells Counted 100
[2019-02-07] MEDS: MEXILETINE 150 MG CAPSULE PO SCH ×2 (06:21→16:23)
[2019-02-07] MEDS: CLOPIDOGREL 75 MG TABLET PO SCH (08:28)
[2019-02-07] MEDS: AMIODARONE 200 MG TABLET PO SCH (08:28)
[2019-02-07] MEDS: PANTOPRAZOLE 40 MG TABLET PO SCH (08:28)
[2019-02-07] MEDS: ASPIRIN EC 81 MG TABLET PO SCH (08:28)
[2019-02-07] MEDS: ASCORBIC ACID 500 MG TABLET PO SCH (08:28)
[2019-02-07] MEDS: CARVEDILOL 6.25 MG TABLET PO SCH (08:29)
[2019-02-07] MEDS: LISINOPRIL 2.5 MG TABLET PO SCH (08:29)
[2019-02-07] MEDS: MAGNESIUM CHLORIDE 64 MG TABLET PO SCH (08:29)
[2019-02-07] MEDS: FUROSEMIDE 20 MG TABLET PO SCH (08:29)
[2019-02-07] MEDS: POTASSIUM CHLORIDE 10 MEQ TABLET PO SCH (08:29)
[2019-02-07 13:16] VITALS: BP 106/71
== END 2019-02-07 16:23 | disposition home health service (06) | DRG 287 ==
LOC: N.TELEN
PROVIDERS: ADMIT Internal Medicine Cardiovascular Disease; ATTEND Internal Medicine Cardiovascular Disease
PROC: CLCCHCL (ICD-10-PCS; 2019-02-05 15:30)

== ENCOUNTER 2019-10-23 10:26 | Inpatient (IN) ==
[2019-10-23] MEDS ORDERED: BISACODYL 5 MG TABLET PO PRN (10:36)
[2019-10-23] MEDS ORDERED: MORPHINE 4 MG/1 ML VIAL IV PRN (10:36)
[2019-10-23] MEDS ORDERED: ONDANSETRON 4 MG/2 ML VIAL IV PRN (10:36)
[2019-10-23] MEDS ORDERED: diphenhydrAMINE CAP 25 MG CAPSULE PO PRN (10:36)
[2019-10-23] MEDS ORDERED: MAGNESIUM SULF RIDER 2 GM in PREMIX 1 EACH IV PRN (10:36)
[2019-10-23] MEDS ORDERED: LACTULOSE 20 GM/30 ML UDCUP PO PRN (10:36)
[2019-10-23] MEDS ORDERED: MAGNESIUM SULF RIDER 4 GM in PREMIX 1 EACH IV PRN (10:36)
[2019-10-23] MEDS ORDERED: ACETAMINOPHEN 325 MG TABLET PO PRN (10:36)
[2019-10-23] MEDS ORDERED: guaiFENesin/DM ER 600-30 MG TABLET PO PRN (10:36)
[2019-10-23] MEDS ORDERED: ZALEPLON 5 MG CAPSULE PO PRN (10:36)
[2019-10-23] MEDS ORDERED: POTASSIUM CHLORIDE 20 MEQ TABLET PO PRN (10:36)
[2019-10-23 12:41] LABS: Basophils # 0.1 10*3/uL (0.0-0.2); Eosinophils # 0.2 10*3/uL (0.0-0.87); Eosinophils % 2.3 % (0.00-10.9); Hematocrit 40.9 VOL% (42.0-52.0); Hemoglobin 12.3 GM/DL (14.0-18.0); Immature Granulocytes % 0.4 %; Immature Granulocytes Absolute 0.03 #; Lymphocytes # 1.6 10*3/uL (1.4-4.0); Mean Corpuscular HGB Conc 30.1 GM/DL (32-36); Mean Corpuscular Volume 90.7 FL (87-102); Mean Platelet Volume 9.7 FL (9.6-12.0); Monocytes % 8.1 % (1.7-12.7); Neutrophils % 69.2 % (38.7-73.9); Platelet Count 338 T/CUMM (130-400); Red Blood Count 4.51 MC/CUMM (3.8-5.5); Red Cell Distribution Width 15.8 % (9.3-17.3); White Blood Count 8.4 T/CUMM (4-12)
[2019-10-23 12:49] LABS: Albumin 2.9 G/DL (3.4-5.0); Bilirubin,Total 0.5 MG/DL (0.2-1.0); Calcium 8.4 MG/DL (8.5-10.1); Total Protein 7.2 G/DL (6.4-8.3)
[2019-10-23 12:53] LABS: Troponin I < 0.015 NG/ML (0.00-0.045)
[2019-10-23] MEDS ORDERED: DIGOXIN 0.125 MG TABLET PO SCH (13:30)
[2019-10-23] MEDS: MEXILETINE 150 MG CAPSULE PO SCH ×2 (14:46→21:56)
[2019-10-23 15:04] LABS: Apearance,Urine CLEAR (Clear); Bilirubin,Urine Negative (Negative); Blood, Urine Negative (Negative); Glucose,Urine (UA) Negative (Negative); Hyaline Casts,Urine 4 /LPF (0-3); Ketones,Urine 5 mg/dL (Negative); Mucus,Urine Occasional /LPF (Occasional); Nitrite,Urine Negative (Negative); Protein,Urine Negative; RBC,Urine 1 /HPF (0-4); Urine Color Yellow (Yellow); Urine Specific Gravity 1.023 (1.001-1.035); WBC,Urine 1 /HPF (0-6)
[2019-10-23 16:29] LABS: Troponin I < 0.015 NG/ML (0.00-0.045)
[2019-10-23] MEDS: FUROSEMIDE 40 MG/4 ML VIAL IV SCH (17:09)
[2019-10-23 19:08] LABS: Troponin I < 0.015 NG/ML (0.00-0.045)
[2019-10-23] MEDS: AMIODARONE 200 MG TABLET PO SCH (21:55)
[2019-10-23] MEDS: ATORVASTATIN 40 MG TABLET PO SCH (21:55)
[2019-10-23] MEDS: GABAPENTIN 300 MG CAPSULE PO SCH (21:55)
[2019-10-23] MEDS: SERTRALINE 100 MG TABLET PO SCH (21:55)
[2019-10-23] MEDS: MAGNESIUM CHLORIDE 64 MG TABLET PO SCH (21:55)
[2019-10-23] MEDS: ASCORBIC ACID 500 MG TABLET PO SCH (21:55)
[2019-10-23] MEDS: DOXEPIN 6 MG PO SCH (21:56)
[2019-10-23] MEDS: carvediloL 3.125 MG TABLET PO SCH (21:56)
[2019-10-23] MEDS: ENOXAPARIN 40 MG/0.4 ML SYRINGE SUBCUT SCH (21:56)
[2019-10-23] MEDS: OXYCODONE PO SCH (21:57)
[2019-10-24 05:13] LABS: Basophils # 0.1 10*3/uL (0.0-0.2); Basophils % 1.1 % (0.0-0.8); Eosinophils # 0.3 10*3/uL (0.0-0.87); Eosinophils % 3.5 % (0.00-10.9); Hematocrit 35.3 VOL% (42.0-52.0); Immature Granulocytes % 0.3 %; Immature Granulocytes Absolute 0.02 #; Lymphocytes % 25.9 % (21.2-54.2); Mean Corpuscular HGB Conc 31.2 GM/DL (32-36); Mean Corpuscular Volume 88.5 FL (87-102); Mean Platelet Volume 9.8 FL (9.6-12.0); Neutrophils % 60.2 % (38.7-73.9); Platelet Count 314 T/CUMM (130-400); Red Blood Count 3.99 MC/CUMM (3.8-5.5); Red Cell Distribution Width 15.6 % (9.3-17.3); White Blood Count 7.5 T/CUMM (4-12)
[2019-10-24 05:46] LABS: Calcium 8.2 MG/DL (8.5-10.1); Risk Ratio 3.03
[2019-10-24] MEDS: MEXILETINE 150 MG CAPSULE PO SCH ×3 (06:11→21:00)
[2019-10-24] MEDS: SPIRONOLACTONE 25 MG TABLET PO SCH (08:49)
[2019-10-24] MEDS: AMIODARONE 200 MG TABLET PO SCH ×2 (08:52→20:58)
[2019-10-24] MEDS: FINASTERIDE 5 MG TABLET PO SCH (08:52)
[2019-10-24] MEDS: lisinopriL 2.5 MG TABLET PO SCH (08:52)
[2019-10-24] MEDS: CLOPIDOGREL 75 MG TABLET PO SCH (08:52)
[2019-10-24] MEDS: ASCORBIC ACID 500 MG TABLET PO SCH ×2 (08:53→20:58)
[2019-10-24] MEDS: POTASSIUM CHLORIDE 10 MEQ TABLET PO SCH (08:53)
[2019-10-24] MEDS: MAGNESIUM CHLORIDE 64 MG TABLET PO SCH ×2 (08:53→20:57)
[2019-10-24] MEDS: carvediloL 3.125 MG TABLET PO SCH ×2 (08:53→20:59)
[2019-10-24] MEDS: GABAPENTIN 300 MG CAPSULE PO SCH ×2 (08:54→20:59)
[2019-10-24] MEDS: ASPIRIN EC 81 MG TABLET PO SCH (08:54)
[2019-10-24] MEDS: PANTOPRAZOLE 40 MG TABLET PO SCH (08:54)
[2019-10-24] MEDS: FUROSEMIDE 40 MG/4 ML VIAL IV SCH ×2 (08:55→16:46)
[2019-10-24] MEDS ORDERED: PANTOPRAZOLE 40 MG TABLET PO SCH (09:00)
[2019-10-24] MEDS: OXYCODONE PO SCH ×2 (09:03→21:00)
[2019-10-24] MEDS: ATORVASTATIN 40 MG TABLET PO SCH (20:58)
[2019-10-24] MEDS: SERTRALINE 100 MG TABLET PO SCH (20:58)
[2019-10-24] MEDS: DOXEPIN 6 MG PO SCH (20:59)
[2019-10-24] MEDS: ENOXAPARIN 40 MG/0.4 ML SYRINGE SUBCUT SCH (20:59)
[2019-10-25] MEDS: MEXILETINE 150 MG CAPSULE PO SCH ×3 (05:15→21:00)
[2019-10-25 06:09] LABS: Basophils # 0.1 10*3/uL (0.0-0.2); Basophils % 0.8 % (0.0-0.8); Eosinophils # 0.3 10*3/uL (0.0-0.87); Eosinophils % 3.5 % (0.00-10.9); Hematocrit 37.7 VOL% (42.0-52.0); Hemoglobin 11.8 GM/DL (14.0-18.0); Immature Granulocytes % 0.4 %; Immature Granulocytes Absolute 0.03 #; Lymphocytes # 1.8 10*3/uL (1.4-4.0); Lymphocytes % 24.9 % (21.2-54.2); Mean Corpuscular HGB Conc 31.3 GM/DL (32-36); Mean Corpuscular Volume 88.3 FL (87-102); Mean Platelet Volume 9.6 FL (9.6-12.0); Monocytes % 8.5 % (1.7-12.7); Neutrophils % 61.9 % (38.7-73.9); Platelet Count 322 T/CUMM (130-400); Red Blood Count 4.27 MC/CUMM (3.8-5.5); Red Cell Distribution Width 15.8 % (9.3-17.3); White Blood Count 7.2 T/CUMM (4-12)
[2019-10-25 06:25] LABS: Calcium 8.7 MG/DL (8.5-10.1); Osmolality,Calculated 269.2 MOS/KG (273-304)
[2019-10-25] MEDS: POTASSIUM CHLORIDE 10 MEQ TABLET PO SCH (08:56)
[2019-10-25] MEDS: carvediloL 3.125 MG TABLET PO SCH ×2 (08:56→20:57)
[2019-10-25] MEDS: FINASTERIDE 5 MG TABLET PO SCH (08:56)
[2019-10-25] MEDS: lisinopriL 2.5 MG TABLET PO SCH (08:56)
[2019-10-25] MEDS: MAGNESIUM CHLORIDE 64 MG TABLET PO SCH ×2 (08:57→20:55)
[2019-10-25] MEDS: ASPIRIN EC 81 MG TABLET PO SCH (08:57)
[2019-10-25] MEDS: PANTOPRAZOLE 40 MG TABLET PO SCH (08:57)
[2019-10-25] MEDS: CLOPIDOGREL 75 MG TABLET PO SCH (08:58)
[2019-10-25] MEDS: AMIODARONE 200 MG TABLET PO SCH ×2 (08:58→20:56)
[2019-10-25] MEDS: ASCORBIC ACID 500 MG TABLET PO SCH ×2 (08:58→20:56)
[2019-10-25] MEDS: FUROSEMIDE 40 MG/4 ML VIAL IV SCH ×2 (08:59→16:54)
[2019-10-25] MEDS: OXYCODONE PO SCH ×2 (09:05→20:57)
[2019-10-25] MEDS: SPIRONOLACTONE 25 MG TABLET PO SCH (09:12)
[2019-10-25] MEDS: GABAPENTIN 300 MG CAPSULE PO SCH ×2 (09:12→20:56)
[2019-10-25] MEDS: ATORVASTATIN 40 MG TABLET PO SCH (20:56)
[2019-10-25] MEDS: SERTRALINE 100 MG TABLET PO SCH (20:57)
[2019-10-25] MEDS: DOXEPIN 6 MG PO SCH (20:57)
[2019-10-25] MEDS: ENOXAPARIN 40 MG/0.4 ML SYRINGE SUBCUT SCH (20:58)
[2019-10-26] MEDS: MEXILETINE 150 MG CAPSULE PO SCH (05:13)
[2019-10-26 05:47] LABS: Basophils # 0.1 10*3/uL (0.0-0.2); Basophils % 1.1 % (0.0-0.8); Eosinophils # 0.2 10*3/uL (0.0-0.87); Eosinophils % 2.6 % (0.00-10.9); Hematocrit 39.1 VOL% (42.0-52.0); Hemoglobin 12.3 GM/DL (14.0-18.0); Immature Granulocytes % 0.3 %; Immature Granulocytes Absolute 0.02 #; Lymphocytes # 1.9 10*3/uL (1.4-4.0); Lymphocytes % 23.6 % (21.2-54.2); Mean Corpuscular HGB Conc 31.5 GM/DL (32-36); Mean Corpuscular Volume 87.5 FL (87-102); Mean Platelet Volume 9.9 FL (9.6-12.0); Monocytes % 9.1 % (1.7-12.7); Neutrophils % 63.3 % (38.7-73.9); Platelet Count 338 T/CUMM (130-400); Red Blood Count 4.47 MC/CUMM (3.8-5.5); Red Cell Distribution Width 15.7 % (9.3-17.3)
[2019-10-26 06:02] LABS: Calcium 8.8 MG/DL (8.5-10.1); Osmolality,Calculated 269.2 MOS/KG (273-304)
[2019-10-26] MEDS: FUROSEMIDE 40 MG/4 ML VIAL IV SCH (08:15)
[2019-10-26] MEDS: GABAPENTIN 300 MG CAPSULE PO SCH ×2 (08:54→21:15)
[2019-10-26] MEDS: MAGNESIUM CHLORIDE 64 MG TABLET PO SCH ×2 (08:54→21:15)
[2019-10-26] MEDS: CLOPIDOGREL 75 MG TABLET PO SCH (08:54)
[2019-10-26] MEDS: ASCORBIC ACID 500 MG TABLET PO SCH ×2 (08:54→21:15)
[2019-10-26] MEDS: ASPIRIN EC 81 MG TABLET PO SCH (08:55)
[2019-10-26] MEDS: lisinopriL 2.5 MG TABLET PO SCH (08:55)
[2019-10-26] MEDS: SPIRONOLACTONE 25 MG TABLET PO SCH (08:55)
[2019-10-26] MEDS: PANTOPRAZOLE 40 MG TABLET PO SCH (08:55)
[2019-10-26] MEDS: FINASTERIDE 5 MG TABLET PO SCH (08:55)
[2019-10-26] MEDS: carvediloL 3.125 MG TABLET PO SCH ×2 (08:55→21:15)
[2019-10-26] MEDS: POTASSIUM CHLORIDE 10 MEQ TABLET PO SCH (08:55)
[2019-10-26] MEDS: AMIODARONE 200 MG TABLET PO SCH (08:56)
[2019-10-26] MEDS: OXYCODONE PO SCH ×2 (08:59→21:16)
[2019-10-26] MEDS ORDERED: DIGOXIN 0.125 MG TABLET PO SCH (13:00)
[2019-10-26] MEDS: FUROSEMIDE 40 MG TABLET PO SCH (18:30)
[2019-10-26] MEDS: ENOXAPARIN 40 MG/0.4 ML SYRINGE SUBCUT SCH (21:14)
[2019-10-26] MEDS: ATORVASTATIN 40 MG TABLET PO SCH (21:15)
[2019-10-26] MEDS: DOXEPIN 6 MG PO SCH (21:16)
[2019-10-26] MEDS: SERTRALINE 100 MG TABLET PO SCH (21:20)
[2019-10-27 05:10] LABS: Basophils # 0.1 10*3/uL (0.0-0.2); Basophils % 0.7 % (0.0-0.8); Eosinophils # 0.2 10*3/uL (0.0-0.87); Eosinophils % 2.8 % (0.00-10.9); Hemoglobin 13.4 GM/DL (14.0-18.0); Immature Granulocytes % 0.2 %; Immature Granulocytes Absolute 0.02 #; Lymphocytes # 2.1 10*3/uL (1.4-4.0); Lymphocytes % 23.7 % (21.2-54.2); Mean Corpuscular HGB Conc 31.2 GM/DL (32-36); Mean Corpuscular Volume 88.1 FL (87-102); Mean Platelet Volume 9.5 FL (9.6-12.0); Monocytes % 9.1 % (1.7-12.7); Neutrophils % 63.5 % (38.7-73.9); Platelet Count 340 T/CUMM (130-400); Red Blood Count 4.88 MC/CUMM (3.8-5.5); Red Cell Distribution Width 15.6 % (9.3-17.3); White Blood Count 8.7 T/CUMM (4-12)
[2019-10-27 05:35] LABS: Calcium 9.1 MG/DL (8.5-10.1); Osmolality,Calculated 271.2 MOS/KG (273-304)
[2019-10-27] MEDS ORDERED: MEXILETINE 150 MG CAPSULE PO SCH (09:00)
[2019-10-27] MEDS ORDERED: AMIODARONE 200 MG TABLET PO SCH (09:00)
[2019-10-27] MEDS ORDERED: TAMSULOSIN 0.4 MG CAPSULE PO SCH (09:00)
[2019-10-27] MEDS: lisinopriL 2.5 MG TABLET PO SCH (09:09)
[2019-10-27] MEDS: ASCORBIC ACID 500 MG TABLET PO SCH (09:10)
[2019-10-27] MEDS: POTASSIUM CHLORIDE 10 MEQ TABLET PO SCH (09:10)
[2019-10-27] MEDS: CLOPIDOGREL 75 MG TABLET PO SCH (09:10)
[2019-10-27] MEDS: SPIRONOLACTONE 25 MG TABLET PO SCH (09:11)
[2019-10-27] MEDS: ASPIRIN EC 81 MG TABLET PO SCH (09:11)
[2019-10-27] MEDS: carvediloL 3.125 MG TABLET PO SCH (09:11)
[2019-10-27] MEDS: FUROSEMIDE 40 MG TABLET PO SCH (09:12)
[2019-10-27] MEDS: MAGNESIUM CHLORIDE 64 MG TABLET PO SCH (09:12)
[2019-10-27] MEDS: FINASTERIDE 5 MG TABLET PO SCH (09:12)
[2019-10-27] MEDS: GABAPENTIN 300 MG CAPSULE PO SCH (09:12)
[2019-10-27] MEDS: PANTOPRAZOLE 40 MG TABLET PO SCH (09:12)
[2019-10-27] MEDS: OXYCODONE PO SCH (09:13)
[2019-10-27 11:57] VITALS: BP 114/65
== END 2019-10-27 13:25 | disposition home health service (06) | DRG 293 ==
LOC: N.TELES 11:57
PROVIDERS: ADMIT Internal Medicine Cardiovascular Disease; ATTEND Internal Medicine Cardiovascular Disease

== ENCOUNTER 2020-02-05 11:15 | Inpatient (IN) ==
[2020-02-05] MEDS ORDERED: ONDANSETRON 4 MG/2 ML VIAL IV STA (11:45)
[2020-02-05] MEDS ORDERED: SODIUM CHLORIDE 0.9% 500 ML IV STA (11:45)
[2020-02-05] MEDS ORDERED: MORPHINE 4 MG/1 ML VIAL IV STA (11:45)
[2020-02-05] MEDS ORDERED: ASPIRIN 325 MG TABLET PO STA (11:45)
[2020-02-05 12:09] LABS: Basophils # 0.1 10*3/uL (0.0-0.2); Basophils % 0.6 % (0.0-0.8); Eosinophils # 0.1 10*3/uL (0.0-0.87); Eosinophils % 1.3 % (0.00-10.9); Hemoglobin 12.5 GM/DL (14.0-18.0); Immature Granulocytes % 0.3 %; Immature Granulocytes Absolute 0.03 #; Lymphocytes # 1.6 10*3/uL (1.4-4.0); Lymphocytes % 15.2 % (21.2-54.2); Mean Corpuscular HGB Conc 32.1 GM/DL (32-36); Mean Corpuscular Volume 89.4 FL (87-102); Mean Platelet Volume 9.9 FL (9.6-12.0); Monocytes % 9.1 % (1.7-12.7); Neutrophils % 73.5 % (38.7-73.9); Platelet Count 237 T/CUMM (130-400); Red Blood Count 4.36 MC/CUMM (3.8-5.5); Red Cell Distribution Width 16.9 % (9.3-17.3); White Blood Count 10.2 T/CUMM (4-12)
[2020-02-05 12:14] LABS: Apearance,Urine CLEAR (Clear); Bilirubin,Urine Negative (Negative); Blood, Urine Negative (Negative); Glucose,Urine (UA) Negative (Negative); Hyaline Casts,Urine 12 /LPF (0-3); Ketones,Urine Negative (Negative); Mucus,Urine Occasional /LPF (Occasional); Nitrite,Urine Negative (Negative); Protein,Urine Negative; RBC,Urine 1 /HPF (0-4); Urine Color Yellow (Yellow); Urine Specific Gravity 1.009 (1.001-1.035); WBC,Urine 2 /HPF (0-6)
[2020-02-05] MEDS ORDERED: AZITHROMYCIN INJ 500 MG in SODIUM CHLORIDE 0.9% 250 ML IV STA (12:15)
[2020-02-05] MEDS ORDERED: cefTRIAXone 1,000 MG in SODIUM CHLORIDE 0.9% 100 ML IV STA (12:15)
[2020-02-05 12:20] LABS: PT Patient Result 10.6 SECS (9.8-11.9); Partial Thromboplastin Time 30.8 SECS (23.9-33.8)
[2020-02-05 12:26] LABS: Bilirubin,Total 0.5 MG/DL (0.2-1.0); Calcium 8.2 MG/DL (8.5-10.1); Osmolality,Calculated 270.4 MOS/KG (273-304); Total Protein 6.9 G/DL (6.4-8.3)
[2020-02-05 12:27] LABS: Ferritin 165.2 ng/ml (26-388); Troponin I < 0.015 NG/ML (0.00-0.045)
[2020-02-05 12:29] LABS: Barbiturates Screen,Urine Negative (Negative); Benzodiazepines Screen,Urine Negative (Negative); Cannabinoid Screen,Urine Negative (Negative); Opiate Screen,Urine Positive (Negative); Phencyclidine Screen,Urine Negative (Negative)
[2020-02-05] MEDS ORDERED: KETOROLAC 30 MG/1 ML VIAL ONE (12:44)
[2020-02-05] MEDS ORDERED: GLUCAGON 1 MG VIAL IM PRN (14:14)
[2020-02-05] MEDS ORDERED: DOCUSATE SODIUM 100 MG CAPSULE PO PRN (14:14)
[2020-02-05] MEDS ORDERED: DEXTROSE 10% 250 ML BAG IV PRN (14:14)
[2020-02-05] MEDS ORDERED: ACETAMINOPHEN 325 MG TABLET PO PRN (14:14)
[2020-02-05] MEDS ORDERED: ONDANSETRON 4 MG/2 ML VIAL IV PRN (14:14)
[2020-02-05] MEDS ORDERED: KETOROLAC 30 MG/1 ML VIAL IV STA (15:00)
[2020-02-05] MEDS ORDERED: MEXILETINE 150 MG CAPSULE PO SCH (15:00)
[2020-02-05] MEDS ORDERED: DIGOXIN 0.125 MG TABLET PO SCH (15:30)
[2020-02-05] MEDS ORDERED: cefTRIAXone 1,000 MG in SYRINGE 1 EACH IV SCH (16:00)
[2020-02-05 16:53] LABS: Calcium 8.2 MG/DL (8.5-10.1); Osmolality,Calculated 271.2 MOS/KG (273-304)
[2020-02-05 17:14] LABS: ABG Base Excess 0.3 MMOL/L (-2.5-2.5); ABG HCO3 24.5 MMOL/L (20-26); ABG Oxygen Saturation 91.6 % (95-100); ABG PCO2 45.6 MM HG (35-48); ABG PH 7.366 (7.35-7.45); ABG PO2 64.7 MM HG (80-95)
[2020-02-05] MEDS: SODIUM CHLORIDE 0.9% 1,000 ML IV SCH (17:25)
[2020-02-05] MEDS: MAGNESIUM CHLORIDE 64 MG TABLET PO SCH ×2 (17:26→21:30)
[2020-02-05] MEDS: CLOPIDOGREL 75 MG TABLET PO SCH (17:26)
[2020-02-05] MEDS: GABAPENTIN 300 MG CAPSULE PO SCH ×2 (17:26→21:30)
[2020-02-05] MEDS: NITROGLYCERIN 2% OINT 1 INCH/GM PACK TOP SCH ×2 (17:27→23:31)
[2020-02-05] MEDS: FINASTERIDE 5 MG TABLET PO SCH (17:27)
[2020-02-05] MEDS: PANTOPRAZOLE 40 MG TABLET PO SCH (17:27)
[2020-02-05] MEDS: ALBUTEROL/IPRATROPIUM 3 ML NEB RESP TX SCH (19:27)
[2020-02-05] MEDS ORDERED: DOXEPIN 6 MG PO SCH (21:00)
[2020-02-05] MEDS: ATORVASTATIN 40 MG TABLET PO SCH (21:30)
[2020-02-05] MEDS: ENOXAPARIN 40 MG/0.4 ML SYRINGE SUBCUT SCH (21:30)
[2020-02-05] MEDS: MEXILETINE 150 MG CAPSULE PO SCH (21:33)
[2020-02-05] MEDS: MORPHINE 4 MG/1 ML VIAL IV PRN (23:30)
[2020-02-06] MEDS: ALBUTEROL/IPRATROPIUM 3 ML NEB RESP TX SCH ×4 (00:55→19:17)
[2020-02-06] MEDS: MEXILETINE 150 MG CAPSULE PO SCH ×3 (05:48→21:16)
[2020-02-06] MEDS: NITROGLYCERIN 2% OINT 1 INCH/GM PACK TOP SCH ×3 (05:48→17:43)
[2020-02-06 07:05] LABS: Basophils # 0.1 10*3/uL (0.0-0.2); Basophils % 0.9 % (0.0-0.8); Eosinophils # 0.2 10*3/uL (0.0-0.87); Eosinophils % 2.5 % (0.00-10.9); Hematocrit 37.1 VOL% (42.0-52.0); Hemoglobin 11.8 GM/DL (14.0-18.0); Immature Granulocytes % 0.2 %; Immature Granulocytes Absolute 0.01 #; Lymphocytes # 1.7 10*3/uL (1.4-4.0); Lymphocytes % 26.3 % (21.2-54.2); Mean Corpuscular HGB Conc 31.8 GM/DL (32-36); Monocytes % 9.7 % (1.7-12.7); Neutrophils % 60.4 % (38.7-73.9); Platelet Count 220 T/CUMM (130-400); Red Blood Count 4.12 MC/CUMM (3.8-5.5); Red Cell Distribution Width 17.2 % (9.3-17.3); White Blood Count 6.5 T/CUMM (4-12)
[2020-02-06 07:39] LABS: Calcium 8.2 MG/DL (8.5-10.1); Osmolality,Calculated 276.7 MOS/KG (273-304)
[2020-02-06] MEDS: GABAPENTIN 300 MG CAPSULE PO SCH ×2 (10:29→20:42)
[2020-02-06] MEDS: CLOPIDOGREL 75 MG TABLET PO SCH (10:29)
[2020-02-06] MEDS: FINASTERIDE 5 MG TABLET PO SCH (10:29)
[2020-02-06] MEDS: MAGNESIUM CHLORIDE 64 MG TABLET PO SCH ×2 (10:29→20:41)
[2020-02-06] MEDS: PANTOPRAZOLE 40 MG TABLET PO SCH (10:29)
[2020-02-06] MEDS: ASPIRIN EC 81 MG TABLET PO SCH (10:29)
[2020-02-06] MEDS: MORPHINE 4 MG/1 ML VIAL IV PRN ×3 (10:34→20:40)
[2020-02-06] MEDS: SODIUM CHLORIDE 0.9% 1,000 ML IV SCH (10:35)
[2020-02-06] MEDS: DIGOXIN 0.125 MG TABLET PO SCH (13:42)
[2020-02-06] MEDS: carvediloL 3.125 MG TABLET PO SCH ×2 (13:42→17:43)
[2020-02-06] MEDS: cefTRIAXone 1,000 MG in SYRINGE 1 EACH IV SCH (13:43)
[2020-02-06] MEDS: ENOXAPARIN 40 MG/0.4 ML SYRINGE SUBCUT SCH (20:41)
[2020-02-06] MEDS: ATORVASTATIN 40 MG TABLET PO SCH (20:42)
[2020-02-07] MEDS: NITROGLYCERIN 2% OINT 1 INCH/GM PACK TOP SCH ×4 (01:46→19:09)
[2020-02-07] MEDS: ALBUTEROL/IPRATROPIUM 3 ML NEB RESP TX SCH ×4 (02:22→19:20)
[2020-02-07] MEDS: MEXILETINE 150 MG CAPSULE PO SCH ×3 (05:58→21:04)
[2020-02-07] MEDS: MORPHINE 4 MG/1 ML VIAL IV PRN ×3 (08:05→21:05)
[2020-02-07] MEDS: CLOPIDOGREL 75 MG TABLET PO SCH (10:37)
[2020-02-07] MEDS: carvediloL 3.125 MG TABLET PO SCH ×2 (10:38→19:09)
[2020-02-07] MEDS: PANTOPRAZOLE 40 MG TABLET PO SCH (10:38)
[2020-02-07] MEDS: MAGNESIUM CHLORIDE 64 MG TABLET PO SCH ×2 (10:38→21:04)
[2020-02-07] MEDS: FINASTERIDE 5 MG TABLET PO SCH (10:38)
[2020-02-07] MEDS: ASPIRIN EC 81 MG TABLET PO SCH (10:38)
[2020-02-07] MEDS: GABAPENTIN 300 MG CAPSULE PO SCH ×2 (10:38→21:04)
[2020-02-07] MEDS: DIGOXIN 0.125 MG TABLET PO SCH (13:18)
[2020-02-07] MEDS: SACUBITRIL/VALSARTAN 49-51 MG TABLET PO SCH ×2 (13:18→21:05)
[2020-02-07] MEDS: cefTRIAXone 1,000 MG in SYRINGE 1 EACH IV SCH (13:19)
[2020-02-07] MEDS: ATORVASTATIN 40 MG TABLET PO SCH (21:04)
[2020-02-07] MEDS: ENOXAPARIN 40 MG/0.4 ML SYRINGE SUBCUT SCH (21:05)
[2020-02-08] MEDS: NITROGLYCERIN 2% OINT 1 INCH/GM PACK TOP SCH ×3 (00:13→11:56)
[2020-02-08] MEDS: ALBUTEROL/IPRATROPIUM 3 ML NEB RESP TX SCH ×2 (00:42→07:22)
[2020-02-08] MEDS: MEXILETINE 150 MG CAPSULE PO SCH (05:33)
[2020-02-08 06:04] LABS: Basophils # 0.1 10*3/uL (0.0-0.2); Basophils % 0.9 % (0.0-0.8); Eosinophils # 0.3 10*3/uL (0.0-0.87); Eosinophils % 3.2 % (0.00-10.9); Hematocrit 41.3 VOL% (42.0-52.0); Hemoglobin 13.3 GM/DL (14.0-18.0); Immature Granulocytes % 0.3 %; Immature Granulocytes Absolute 0.02 #; Lymphocytes # 1.6 10*3/uL (1.4-4.0); Lymphocytes % 20.2 % (21.2-54.2); Mean Corpuscular HGB Conc 32.2 GM/DL (32-36); Mean Platelet Volume 9.8 FL (9.6-12.0); Monocytes % 9.2 % (1.7-12.7); Neutrophils % 66.2 % (38.7-73.9); Platelet Count 241 T/CUMM (130-400); Red Blood Count 4.59 MC/CUMM (3.8-5.5); White Blood Count 7.8 T/CUMM (4-12)
[2020-02-08 06:20] LABS: Calcium 8.9 MG/DL (8.5-10.1); Osmolality,Calculated 271.8 MOS/KG (273-304)
[2020-02-08 07:45] VITALS: BP 126/74
[2020-02-08] MEDS: GABAPENTIN 300 MG CAPSULE PO SCH (09:11)
[2020-02-08] MEDS: FINASTERIDE 5 MG TABLET PO SCH (09:11)
[2020-02-08] MEDS: SACUBITRIL/VALSARTAN 49-51 MG TABLET PO SCH (09:11)
[2020-02-08] MEDS: MORPHINE 4 MG/1 ML VIAL IV PRN (09:12)
[2020-02-08] MEDS: PANTOPRAZOLE 40 MG TABLET PO SCH (09:12)
[2020-02-08] MEDS: carvediloL 3.125 MG TABLET PO SCH (09:12)
[2020-02-08] MEDS: ASPIRIN EC 81 MG TABLET PO SCH (09:12)
[2020-02-08] MEDS: CLOPIDOGREL 75 MG TABLET PO SCH (09:12)
[2020-02-08] MEDS: MAGNESIUM CHLORIDE 64 MG TABLET PO SCH (09:12)
[2020-02-08] MEDS: cefTRIAXone 1,000 MG in SYRINGE 1 EACH IV SCH (11:56)
== END 2020-02-08 12:22 | disposition home or self-care (01) | DRG 302 ==
LOC: EDBD → EDUNIT# → N.ED 11:15 → N.EDINP 14:14 → SUATTDRO 14:14 → N.EDINP 15:18 → N.TELEN 15:46
PROVIDERS: ADMIT Family Medicine; ATTEND Internal Medicine

== ENCOUNTER 2020-04-18 14:46 | Inpatient (IN) ==
[2020-04-18 15:13] LABS: Basophils # 0.1 10*3/uL (0.0-0.2); Eosinophils # 0.2 10*3/uL (0.0-0.87); Eosinophils % 2.1 % (0.00-10.9); Hematocrit 41.9 VOL% (42.0-52.0); Hemoglobin 13.2 GM/DL (14.0-18.0); Immature Granulocytes % 0.3 %; Immature Granulocytes Absolute 0.02 #; Lymphocytes # 1.8 10*3/uL (1.4-4.0); Lymphocytes % 25.2 % (21.2-54.2); Mean Corpuscular HGB Conc 31.5 GM/DL (32-36); Mean Corpuscular Volume 93.5 FL (87-102); Mean Platelet Volume 10.3 FL (9.6-12.0); Monocytes % 9.9 % (1.7-12.7); Neutrophils % 61.5 % (38.7-73.9); Platelet Count 290 T/CUMM (130-400); Red Blood Count 4.48 MC/CUMM (3.8-5.5); Red Cell Distribution Width 14.7 % (9.3-17.3); White Blood Count 7.3 T/CUMM (4-12)
[2020-04-18] MEDS ORDERED: MORPHINE 4 MG/1 ML VIAL IV STA ×2 (15:19→16:45)
[2020-04-18 15:21] LABS: Partial Thromboplastin Time 30.2 SECS (23.9-33.8)
[2020-04-18] MEDS ORDERED: ONDANSETRON 4 MG/2 ML VIAL ONE (15:25)
[2020-04-18] MEDS ORDERED: ONDANSETRON 4 MG/2 ML VIAL IV STA (15:26)
[2020-04-18 16:41] LABS: Albumin 3.1 G/DL (3.4-5.0); Bilirubin,Total 0.5 MG/DL (0.2-1.0); Calcium 8.6 MG/DL (8.5-10.1); Osmolality,Calculated 274.7 MOS/KG (273-304); Total Protein 7.3 G/DL (6.4-8.3)
[2020-04-18] MEDS ORDERED: cefTRIAXone 1,000 MG in SODIUM CHLORIDE 0.9% 100 ML IV STA (17:47)
[2020-04-18 18:49] LABS: Ferritin 128.4 ng/ml (26-388)
[2020-04-18] MEDS ORDERED: ONDANSETRON 4 MG/2 ML VIAL IV PRN (19:31)
[2020-04-18] MEDS ORDERED: ACETAMINOPHEN 325 MG TABLET PO PRN (19:31)
[2020-04-18] MEDS ORDERED: NITROGLYCERIN SL 0.4 MG TABLET SL PRN (19:31)
[2020-04-18] MEDS ORDERED: DEXTROSE 50% 25 GM/50 ML VIAL IV PRN (19:31)
[2020-04-18] MEDS ORDERED: GLUCAGON 1 MG VIAL IM PRN (19:31)
[2020-04-18] MEDS: MORPHINE 4 MG/1 ML VIAL IV PRN (20:14)
[2020-04-18] MEDS: POTASSIUM CHLORIDE 10 MEQ TABLET PO SCH (21:00)
[2020-04-18] MEDS ORDERED: cilostazoL 50 MG TABLET PO SCH (21:00)
[2020-04-18] MEDS ORDERED: AZITHROMYCIN INJ 500 MG in SODIUM CHLORIDE 0.9% 250 ML IV SCH (21:00)
[2020-04-18] MEDS: carvediloL 3.125 MG TABLET PO SCH (21:00)
[2020-04-18] MEDS ORDERED: FUROSEMIDE 40 MG TABLET PO SCH (21:00)
[2020-04-18] MEDS: ROSUVASTATIN 20 MG TABLET PO SCH (21:03)
[2020-04-18] MEDS: TAMSULOSIN 0.4 MG CAPSULE PO SCH (21:03)
[2020-04-18] MEDS: SACUBITRIL/VALSARTAN 49-51 MG TABLET PO SCH (21:03)
[2020-04-18] MEDS: ISOSORBIDE DINITRATE 20 MG TABLET PO SCH (21:03)
[2020-04-18] MEDS: GABAPENTIN 600 MG TABLET PO SCH (21:03)
[2020-04-18] MEDS: ENOXAPARIN 40 MG/0.4 ML SYRINGE SUBCUT SCH (21:03)
[2020-04-18] MEDS: ZALEPLON 5 MG CAPSULE PO SCH (21:04)
[2020-04-18 21:10] LABS: Troponin I < 0.015 NG/ML (0.00-0.045)
[2020-04-18 23:22] LABS: Troponin I < 0.015 NG/ML (0.00-0.045)
[2020-04-19] MEDS ORDERED: MORPHINE 4 MG/1 ML VIAL ONE (03:42)
[2020-04-19] MEDS: MORPHINE 4 MG/1 ML VIAL IV PRN ×5 (03:46→21:38)
[2020-04-19 04:59] LABS: Basophils # 0.1 10*3/uL (0.0-0.2); Eosinophils # 0.2 10*3/uL (0.0-0.87); Eosinophils % 3.3 % (0.00-10.9); Hemoglobin 12.5 GM/DL (14.0-18.0); Immature Granulocytes % 0.3 %; Immature Granulocytes Absolute 0.02 #; Lymphocytes # 1.9 10*3/uL (1.4-4.0); Lymphocytes % 27.1 % (21.2-54.2); Mean Corpuscular HGB Conc 32.1 GM/DL (32-36); Mean Corpuscular Volume 93.3 FL (87-102); Mean Platelet Volume 10.3 FL (9.6-12.0); Neutrophils % 59.3 % (38.7-73.9); Platelet Count 261 T/CUMM (130-400); Red Blood Count 4.18 MC/CUMM (3.8-5.5); Red Cell Distribution Width 14.6 % (9.3-17.3)
[2020-04-19 05:37] LABS: Calcium 8.4 MG/DL (8.5-10.1); Osmolality,Calculated 275.7 MOS/KG (273-304)
[2020-04-19 05:56] LABS: Ferritin 115.6 ng/ml (26-388)
[2020-04-19] MEDS: ISOSORBIDE DINITRATE 20 MG TABLET PO SCH ×2 (08:45→20:55)
[2020-04-19] MEDS: GABAPENTIN 600 MG TABLET PO SCH ×2 (08:45→20:54)
[2020-04-19] MEDS: SPIRONOLACTONE 25 MG TABLET PO SCH (08:45)
[2020-04-19] MEDS: FUROSEMIDE 40 MG/4 ML VIAL IV SCH ×2 (08:45→17:36)
[2020-04-19] MEDS: AZITHROMYCIN 250 MG TABLET PO SCH (08:45)
[2020-04-19] MEDS: ASPIRIN EC 81 MG TABLET PO SCH (08:45)
[2020-04-19] MEDS: carvediloL 3.125 MG TABLET PO SCH ×2 (08:45→16:43)
[2020-04-19] MEDS: SACUBITRIL/VALSARTAN 49-51 MG TABLET PO SCH ×2 (08:45→20:55)
[2020-04-19] MEDS: cefTRIAXone 2,000 MG in SYRINGE 1 EACH IV SCH (08:45)
[2020-04-19] MEDS: MEXILETINE 150 MG CAPSULE PO SCH (08:45)
[2020-04-19] MEDS: FINASTERIDE 5 MG TABLET PO SCH (08:45)
[2020-04-19] MEDS: POTASSIUM CHLORIDE 10 MEQ TABLET PO SCH ×2 (08:45→20:53)
[2020-04-19] MEDS: CLOPIDOGREL 75 MG TABLET PO SCH (08:45)
[2020-04-19] MEDS ORDERED: PANTOPRAZOLE 40 MG TABLET PO SCH (09:00)
[2020-04-19] MEDS: NICOTINE 21 MG/24 HR PATCH TRANSDERM SCH (12:01)
[2020-04-19] MEDS: DIGOXIN 0.125 MG TABLET PO SCH (14:20)
[2020-04-19] MEDS ORDERED: ALBUTEROL/IPRATROPIUM 3 ML NEB RESP TX SCH (15:00)
[2020-04-19] MEDS: ZALEPLON 5 MG CAPSULE PO SCH (20:53)
[2020-04-19] MEDS: ROSUVASTATIN 20 MG TABLET PO SCH (20:54)
[2020-04-19] MEDS: TAMSULOSIN 0.4 MG CAPSULE PO SCH (20:55)
[2020-04-19] MEDS: ENOXAPARIN 40 MG/0.4 ML SYRINGE SUBCUT SCH (20:56)
[2020-04-20] MEDS: MORPHINE 4 MG/1 ML VIAL IV PRN ×2 (04:11→09:15)
[2020-04-20 05:48] LABS: Basophils # 0.1 10*3/uL (0.0-0.2); Eosinophils # 0.3 10*3/uL (0.0-0.87); Eosinophils % 3.5 % (0.00-10.9); Hematocrit 40.7 VOL% (42.0-52.0); Hemoglobin 12.8 GM/DL (14.0-18.0); Immature Granulocytes % 0.4 %; Immature Granulocytes Absolute 0.03 #; Lymphocytes # 1.7 10*3/uL (1.4-4.0); Lymphocytes % 24.2 % (21.2-54.2); Mean Corpuscular HGB Conc 31.4 GM/DL (32-36); Mean Corpuscular Volume 93.6 FL (87-102); Mean Platelet Volume 10.1 FL (9.6-12.0); Monocytes % 9.6 % (1.7-12.7); Neutrophils % 61.3 % (38.7-73.9); Platelet Count 263 T/CUMM (130-400); Red Blood Count 4.35 MC/CUMM (3.8-5.5); Red Cell Distribution Width 14.6 % (9.3-17.3); White Blood Count 7.1 T/CUMM (4-12)
[2020-04-20 06:18] LABS: Calcium 8.9 MG/DL (8.5-10.1)
[2020-04-20 06:24] LABS: Ferritin 120.5 ng/ml (26-388)
[2020-04-20] MEDS: FUROSEMIDE 40 MG/4 ML VIAL IV SCH (09:10)
[2020-04-20] MEDS: SACUBITRIL/VALSARTAN 49-51 MG TABLET PO SCH ×2 (09:11→20:36)
[2020-04-20] MEDS: FINASTERIDE 5 MG TABLET PO SCH (09:12)
[2020-04-20] MEDS: AZITHROMYCIN 250 MG TABLET PO SCH (09:12)
[2020-04-20] MEDS: CLOPIDOGREL 75 MG TABLET PO SCH (09:13)
[2020-04-20] MEDS: SPIRONOLACTONE 25 MG TABLET PO SCH (09:13)
[2020-04-20] MEDS: POTASSIUM CHLORIDE 10 MEQ TABLET PO SCH (09:13)
[2020-04-20] MEDS: ASPIRIN EC 81 MG TABLET PO SCH (09:13)
[2020-04-20] MEDS: carvediloL 3.125 MG TABLET PO SCH ×2 (09:13→18:18)
[2020-04-20] MEDS: NICOTINE 21 MG/24 HR PATCH TRANSDERM SCH (09:13)
[2020-04-20] MEDS: MEXILETINE 150 MG CAPSULE PO SCH (09:14)
[2020-04-20] MEDS: ISOSORBIDE DINITRATE 20 MG TABLET PO SCH ×2 (09:14→20:35)
[2020-04-20] MEDS: GABAPENTIN 600 MG TABLET PO SCH ×2 (09:14→20:36)
[2020-04-20] MEDS: cefTRIAXone 2,000 MG in SYRINGE 1 EACH IV SCH (09:21)
[2020-04-20] MEDS ORDERED: NALOXONE 0.4 MG/ML VIAL ONE (10:39)
[2020-04-20] MEDS ORDERED: SODIUM CHLORIDE 0.9% 250 ML IV ONE (10:44)
[2020-04-20] MEDS ORDERED: NALOXONE 0.4 MG/ML VIAL IV ONE (11:00)
[2020-04-20] MEDS: DIGOXIN 0.125 MG TABLET PO SCH (12:49)
[2020-04-20] MEDS ORDERED: SODIUM CHLORIDE 0.9% 250 ML IV SCH (13:00)
[2020-04-20] MEDS: ROSUVASTATIN 20 MG TABLET PO SCH (20:35)
[2020-04-20] MEDS: CEFDINIR 300 MG CAPSULE PO SCH (20:36)
[2020-04-20] MEDS: TAMSULOSIN 0.4 MG CAPSULE PO SCH (20:36)
[2020-04-20] MEDS: ENOXAPARIN 40 MG/0.4 ML SYRINGE SUBCUT SCH (20:36)
[2020-04-20] MEDS: ZALEPLON 5 MG CAPSULE PO SCH (20:37)
[2020-04-21 06:50] LABS: Calcium 8.8 MG/DL (8.5-10.1); Osmolality,Calculated 274.8 MOS/KG (273-304)
[2020-04-21] MEDS ORDERED: oxyCODONE/ACETAMINOPHEN 5-325 MG TABLET PO PRN (09:13)
[2020-04-21] MEDS: carvediloL 3.125 MG TABLET PO SCH (10:35)
[2020-04-21] MEDS: NICOTINE 21 MG/24 HR PATCH TRANSDERM SCH (10:35)
[2020-04-21] MEDS: FINASTERIDE 5 MG TABLET PO SCH (10:36)
[2020-04-21] MEDS: ISOSORBIDE DINITRATE 20 MG TABLET PO SCH (10:36)
[2020-04-21] MEDS: ASPIRIN EC 81 MG TABLET PO SCH (10:36)
[2020-04-21] MEDS: SACUBITRIL/VALSARTAN 49-51 MG TABLET PO SCH (10:37)
[2020-04-21] MEDS: CLOPIDOGREL 75 MG TABLET PO SCH (10:37)
[2020-04-21] MEDS: CEFDINIR 300 MG CAPSULE PO SCH (10:38)
[2020-04-21] MEDS: AZITHROMYCIN 250 MG TABLET PO SCH (10:38)
[2020-04-21] MEDS: SPIRONOLACTONE 25 MG TABLET PO SCH (10:38)
[2020-04-21] MEDS: MEXILETINE 150 MG CAPSULE PO SCH (10:38)
[2020-04-21] MEDS: GABAPENTIN 600 MG TABLET PO SCH (10:38)
[2020-04-21 12:02] VITALS: BP 117/60
== END 2020-04-21 12:30 | disposition home health service (06) | DRG 291 ==
LOC: EDBD → EDUNIT# → N.ED 14:46 → N.EDINP 18:03 → N.2E 04-19 08:30
PROVIDERS: ADMIT Internal Medicine; ATTEND Internal Medicine